=== PATIENT | male | born 1965 | race Caucasian/White ===

== ENCOUNTER 2017-01-26 23:58 | Emergency (ER) | payer BC, OTHER ==
[2017-01-27] MEDS ORDERED: Ketorolac INJ* 30 MG/ML 1 ML VIAL IV PUSH ONE (00:35)
[2017-01-27] MEDS ORDERED: Morphine INJ* 4 MG/ML 1 ML CARPUJECT IV ONE ×3 (00:35→04:00)
[2017-01-27] MEDS ORDERED: Ondansetron INJ* 2 MG/ML VIAL IV ONE ×3 (00:35→11:26)
[2017-01-27 01:07] LABS: Hematocrit 43 % (42-52); Hemoglobin 14.7 g/dl (14.0-18.0); Mean Corpuscular HGB Conc 34 g/dl (31-36); Mean Corpuscular Hemoglobin 27 pg (27-31); Mean Corpuscular Volume 81 fL (80-94); Mean Platelet Volume 8 um3 (7.4-10.4); Red Blood Count 5.37 10^6/ul (4.0-5.4); Red Cell Distribution Width 14 % (10.5-15); White Blood Count 14.8 10^3/ul (3.5-10.8)
[2017-01-27 01:20] LABS: Alcohol < 10 mg/dL (<10)
[2017-01-27] MEDS ORDERED: KETAMINE HCL* 50 MG/ML 10 ML VIAL IV ONE ×2 (01:21→01:25)
[2017-01-27 01:22] LABS: ALT 21 U/L (7-52); AST 19 U/L (13-39); Albumin 4.5 g/dL (3.2-5.2); Alkaline Phosphatase 78 U/L (34-104); Anion Gap 11 mmol/L (2-11); BUN/Creatinine Ratio 9.5 (8-20); Blood Urea Nitrogen 13 mg/dL (6-24); C Reactive Protein 7.35 mg/L (< 5.00); CO2 Carbon Dioxide 21 mmol/L (22-32); Calcium 9.4 mg/dL (8.6-10.3); Chloride 105 mmol/L (101-111); EGFR Non-African American 55.2 (>60); Globulin 3.1 g/dL (2-4); Glucose 121 mg/dL (70-100); Lipase 19 U/L (11.0-82.0); Potassium 3.6 mmol/L (3.5-5.0); Sodium 137 mmol/L (133-145); Total Protein 7.6 g/dL (6.4-8.9)
[2017-01-27] MEDS ORDERED: fentaNYL* 50 MCG/ML 2 ML VIAL (100 MCG VIAL) IV SLOW PU ONE ×2 (01:31→07:44)
[2017-01-27] MEDS ORDERED: Ondansetron INJ* 2 MG/ML VIAL ONE (02:00)
[2017-01-27] MEDS ORDERED: Metoclopramide IV* 5 MG/ML 2 ML VIAL IV SLOW PU ONE (02:09)
[2017-01-27] MEDS ORDERED: Iodixanol* (CONTRAST) 320 MG/ML 100 ML SDV IV ONE (02:10)
[2017-01-27] MEDS ORDERED: NS 0.9% 1000 ML* 2,000 ML IV ONE (04:00)
[2017-01-27] MEDS ORDERED: LORazepam INJ* 2 MG/ML 1 ML VIAL IV PUSH ONE (05:56)
[2017-01-27 06:32] LABS: Urine Bilirubin Negative (Negative); Urine Glucose Negative (Negative); Urine Nitrite Negative (Negative)
[2017-01-27 06:42] LABS: Benzodiazepine Urine Screen None Detected (None Detect)
[2017-01-27] MEDS ORDERED: Ciprofloxacin 400MG IVPREMIX(* 400 MG/200 ML BAG IVPB ONE (06:53)
--- NOTE | 2017-01-27 08:38 | RAD ---
Indication: Left lower quadrant pain Contrast: Administered 141.2 ml of VISAPAQUE 320 mg/ml CT of the abdomen and pelvis was performed after IV contrast administration. Coronal and sagittal reconstructed images were obtained. Lung bases demonstrate no pleural fluid or masses. There is a tiny 2 to 3 mm nodule in the right lung base unchanged from previous exam. No pleural fluid is identified. No alveolar consolidation is noted. Liver is normal in size. There is diffuse decrease in density of the liver consistent with hepatic steatosis. Gallbladder demonstrates no calcified gallstones, pericholecystic fluid or wall thickening. Common duct is not dilated. Pancreas demonstrates no mass or pancreatic duct dilatation. No adrenal masses are noted. There is slight delay of the left nephrogram. There is left hydronephrosis noted of mild to moderate degree. There is a calculus in the proximal left ureter measuring approximately 5 mm. No focal nodules are noted in the kidneys. The aorta and inferior vena cava are unremarkable with no evidence of retroperitoneal adenopathy. No dilated loops of bowel are noted. The colon is filled with stool. CT of the pelvis demonstrates repair of a ruptured abdominal wall hernia. No dilated loops of bowel are noted. The colon is filled with stool. There appears to be an anastomosis of the sigmoid colon. No pericolonic inflammation or fluid is noted. No pelvic adenopathy is noted. The urinary bladder is unremarkable. IMPRESSION: There is a 5 mm calculus in the left proximal ureter at approximately the L3 level with mild left hydronephrosis. Postoperative changes with anterior abdominal wall hernia repair and prior colon resection is noted. There is hepatic steatosis noted. 3 mm nodule in the right lower lobe appears stable since October 2016.
[2017-01-27] MEDS ORDERED: fentaNYL* 50 MCG/ML 2 ML VIAL (100 MCG VIAL) IV SLOW PU PRN (10:03)
--- NOTE | 2017-01-27 10:04 | CONSULT ---
Consult Consult: Mr. Cook came in on a previous shift and was found to have a 4 mm ureteral stone on the left that was very proximal. He was very symptomatic here and Dr. Wahl and Arsen were contacted for admission. He was admitted in stable condition with a diagnosis of ureterolithiasis and intractable pain.
[2017-01-27] MEDS ORDERED: Ondansetron INJ* 2 MG/ML VIAL IV PRN (10:29)
[2017-01-27] MEDS ORDERED: NS 0.9% 1000 ML* 1,000 ML IV SCH (10:30)
--- NOTE | 2017-01-27 12:32 | RAD ---
Indication: Kidney stone. Extrusion Press Operator film of the abdomen is reviewed. Comparison is made with previous exam dated earlier this morning. The left ureter is well opacified. There is filling defect in the distal left ureter likely representing the previously identified calculi measuring approximately 4 mm just above the left ureterovesicular junction. IMPRESSION: Previously identified calculi has likely migrated to the distal ureter just above the left ureterovesicular junction. Persistent obstruction of the left kidney is present.
[2017-01-27] MEDS ORDERED: A lbuterol Hfa (PREPAK) 1 MDI - ED TAKE HOME DISPENSING ONLY INHH PRN (12:50)
[2017-01-27] MEDS ORDERED: Mometasone NASAL (NF) SPRAY BOTH NARES PRN (12:50)
[2017-01-27] MEDS ORDERED: Polyethylene Glycol 3350* 17 GM PACKET PO PRN (12:50)
[2017-01-27 14:15] VITALS: BP 123/66
--- NOTE | 2017-01-27 15:54 | CONS ---
CONSULTATION REPORT: ADDENDUM: There is not urology coverage on as previously thought. The patient will receive another liter of saline in the emergency room and will be discharged to home. REED MACIEL, LEONORA [id number]/[facility] #: [id number] CARMEN
--- NOTE | 2017-01-27 16:10 | CONS ---
ADDENDUM NOW INCLUDED ON THIS REPORT CC: Dr. Lyla Stringer* CONSULTATION REPORT: DATE OF CONSULT: 01/27/17 - EMERGENCY DEPT PRIMARY CARE PROVIDER: Dr. Lyla Stringer. ATTENDING PHYSICIAN: Dr. Clair Aguilar (dictated by Reed Maciel NP). CHIEF COMPLAINT: Abdominal pain. HISTORY OF PRESENT ILLNESS: Mr. Cook is a 51-year-old male with past medical history significant for asthma, obstructive sleep apnea, diverticulitis, hypertension, and renal colic, who presented to the emergency room with complaints of abdominal pain that had suddenly started the night previously. Patient denies any fever, chills, chest pain, shortness of breath or urinary symptoms such as dysuria, urinary frequency. He does endorse nausea and vomiting. Patient states that his abdominal pain feels more like muscular. Due to the patient's abdominal pain, he presented to the emergency room for further evaluation of his symptoms. While in the emergency room, the patient had an abdomen and pelvis CT showing 5 mm calculus in the left proximal ureter at approximately the L3 level, with mild left hydronephrosis. Patient received pain medication and antinausea medicine while in the emergency room and Dr. Leger with Urology was consulted. The hospitalists were asked to evaluate the patient for admission. PAST MEDICAL HISTORY: 1. Asthma. 2. Obstructive sleep apnea, with CPAP use. 3. Diverticulitis. 4. Hypertension. PAST SURGICAL HISTORY: 1. Status post colectomy and colostomy placement. 2. Status post colostomy reversal complicated by wound infection. 3. Status post closed reduction and pinning of his left thumb, 2013. 4. Status post multiple cystos and stents. 5. Status post ventral hernia repair. 6. Status post exploratory lap and incidental appendectomy in 2000. HOME MEDICATIONS: Include: 1. Valsartan 80 mg oral daily. 2. Nasonex 2 sprays daily as needed. 3. Albuterol 180 mcg, 1 to 2 puffs inhalation every 6 hours as needed for shortness of breath or wheeze. 4. MiraLAX 17 g oral daily as needed for constipation. ALLERGIES: KETAMINE causes vomiting, DILAUDID and PERCOCET cause nausea and vomiting, DEMEROL causes violence, MOTRIN causes rash, and ADHESIVE TAPE. FAMILY HISTORY: Patient denies any family history of coronary artery disease or diabetes mellitus. Patient's mother has a history of breast cancer. SOCIAL HISTORY: The patient reports quitting smoking many years ago. Prior to that he has approximately 20-year smoking history. Patient occasionally drinks alcohol. He uses marijuana. He is retired. His , Natty Cook, will be his surrogate decision maker in the event he is unable to make decision for himself. REVIEW OF SYSTEMS: I performed a 14-point review of systems. All the pertinent positives and negatives as mentioned in the history of present illness. Remainder of the systems are negative. PHYSICAL EXAMINATION: General Appearance: The patient is alert, pleasant, appears to be in no acute distress. Vital Signs: Temperature 97.1, heart rate 84, respiratory rate 20, O2 sat 98% on room air, blood pressure 112/62. HEENT: Normocephalic, atraumatic. Pupils are equal and reactive to light. Extraocular movements are intact. Respiratory: There is no accessory muscle use. Lungs are clear to auscultation bilaterally. Cardiovascular: Regular rate and rhythm. S1 and S2 present. There are no murmurs, rubs, or gallops. Abdomen: Soft, nontender, nondistended. Bowel sounds present x4. Extremities: No lower extremity edema. DP and PT pulses 2+ and symmetric. Musculoskeletal: There is no clubbing or cyanosis noted. The patient exhibits good strength in all extremities. Neurological: The patient is alert and oriented. Cranial nerves II through XII are grossly intact. Psychological: The patient is calm and cooperative. Skin: There are no rashes or abnormalities seen. The patient has multiple scars to his abdomen from prior surgeries. DIAGNOSTIC STUDIES/LAB DATA: Sodium 137, potassium 3.6, chloride 105, CO2 of 21 , BUN 13, creatinine 1.37, glucose 121. White blood cell count 14.8, hemoglobin 14.7, hematocrit 43, and platelet count 225. Lactic acid 2.5. CRP 7.35. Drug tox is positive for opiates and cannabinoids. Abdomen and pelvis CT from 01/27/17. Radiologist's impression: There is a 5 mm calculus in the left proximal ureter at approximately the L3 level with mild left hydronephrosis. Postoperative changes with anterior abdominal wall hernia repair and prior colon resection is noted. There is hepatic stenosis noted. 3- mm nodule in the right lower lobe appears stable since October 2016. Abdomen x-ray on 01/27/17. Radiologist's impression: Previously identified calculi has likely migrated to the distal ureter just above the left ureterovesical junction. Persistent obstruction of the left kidney is present. EKG shows a sinus bradycardia with rate of 55. There are no acute signs of ischemia. No previous EKGs for comparison. IMPRESSION: Mr. Cook is a 51-year-old male with past medical history significant for asthma, obstructive sleep apnea with CPAP use, diverticulitis, hypertension, and renal calculi, who presents to the emergency room with complaints of abdominal pain, was found to have a 5-mm left proximal ureter stone. He will be admitted as an observation for nephrolithiasis and renal colic. ASSESSMENT/PLAN: 1. Nephrolithiasis/renal calculi. The patient will be given IV hydration. He will remain n.p.o. Dr. Leger with Urology is going to come in today and take the patient for a cysto and possible stent placement. Patient will be provided with supportive care, pain medication and nausea medication as needed. According to the RCRI, the patient has a 0 points, placing him at a class I risk , and a 0.4% risk of major cardiac event. Patient's EKG with no acute signs of ischemia. He has a MET score of greater than 4. The patient is medically optimized and may proceed to the OR according to Urology. 2. History of asthma. No signs of acute exacerbation at this time. The patient will be continued on albuterol p.r.n. 3. Hypertension. We will continue the patient on his home valsartan. 4. Obstructive sleep apnea. The patient will be continued on CPAP. 5. Fluids, electrolytes, and nutrition. N.p.o. at this time with normal saline at 125 mL an hour. 6. Code status: Full code. 7. DVT prophylaxis: The patient is at moderate risk and he will have SCDs. 8. Disposition: Observation. TIME SPENT: Time for this admission was approximately 60 minutes; greater than half of that was spent with the patient discussing medications, past medical history, the events leading up to his arrival today, and performing a physical examination. The case has been reviewed with the attending, Dr. Aguilar, who agrees with the plan of care. REED MACIEL NP ADDENDUM: There is not urology coverage on as previously thought. The patient will receive another liter of saline in the emergency room and will be discharged to home. REED MACIEL NP [id number]/[facility] #: [id number]/[facility] #: [id number] CARMEN
--- NOTE | 2017-01-28 04:30 | ED ---
Nohelia Cadet Rebecca, scribed for Seven Head MD on 01/27/17 at 0046 . Abdominal Pain/Male - HPI Summary HPI Summary: Pt is a 51 y/o M who presents to ED c/o abdominal pain. Pain began approximately 1 hour RN INTAKE and is currently severe, ranked 10/10. Pain is in the LLQ, L testicle and L flank with all pain beginning concurrently. Sx aggravated and alleviated by nothing. Additionally c/o difficulty urinating, N/V/D, stating he is "shitting spaghetti." Unsure of when he last urinated. Allergies to Ibuprofen, hydromorphone and meperidine. PMHx renal calculi, diverticulitis and HTN. PSHx colon repair form "colon burst" secondary to diverticulitis and hernia repair. - History of Current Complaint Chief Complaint: EDAbdPain Stated Complaint: ABD PAIN Time Seen by Provider: 01/27/17 00:35 Hx Obtained From: Patient Onset/Duration: Still Present Severity Currently: Severe Pain Intensity: 10 Pain Scale Used: 0-10 Numeric Location: Discrete At: LLQ, Groin - Left testicle, Flank - Left Aggravating Factor(s): Nothing Alleviating Factor(s): Nothing Associated Signs And Symptoms: Positive: Nausea, Vomiting, Diarrhea, Other - Difficulty urinating - Allergies/Home Medications Allergies/Adverse Reactions: Allergies Allergy/AdvReac Type Severity Reaction Status Date / Time Ketamine Allergy Nausea And Verified 01/27/17 06:59 Vomiting Hydromorphone [From Dilaudid] AdvReac Severe Altered Verified 01/27/17 00:14 Mental Status Meperidine [From Demerol HCl] AdvReac Severe Altered Verified 01/27/17 00:14 Mental Status Ibuprofen AdvReac Intermediate Rash Verified 01/27/17 00:14 adhesives AdvReac Intermediate Rash Uncoded 01/27/17 00:14 PMH/Surg Hx/FS Hx/Imm Hx Cardiovascular History: Reports: Hx Hypertension - has not been taking BP MEDS THAT WERE PRESCRIBED Respiratory History: Reports: Hx Asthma - FLARES UP WITH SEASON CHANGES, Hx Pneumonia, Hx Seasonal Allergies, Hx Sleep Apnea GI History: Reports: Hx Diverticulosis, Hx Ileostomy Denies: Other GI Disorders History: Reports: Hx Kidney Stones - IN THE PAST Musculoskeletal History: Reports: Hx Arthritis - left hand, Hx Orthopedic Injury - left thumb Denies: Other Musculoskeletal History Sensory History: Denies: Hx Contacts or Glasses, Hx Hearing Aid Opthamlomology History: Denies: Hx Contacts or Glasses Psychiatric History: Reports: Hx Anxiety - TENDS TO BE HYPER & ANXIOUS - Surgical History Surgery Procedure, Year, and Place: Left eye (Raul's Transplant);. Appendectomy. Colostomy. Colostomy Reversal. Hernia Surgery. Left ORIF Knee. Left eye-Cornea surgery-Lens implant[place] [place]. Kidney [id number] Hx Anesthesia Reactions: No Infectious Disease History: Denies: Traveled Outside the [place] in Last 30 Days - Family History Known Family History: Negative: Diabetes - Social History Alcohol Use: Weekly Alcohol Amount: 5 DRINKS A MONTH Substance Use Type: Reports: Marijuana Substance Use Comment - Amount & Last Used: MJ EVERY DAY Smoking Status (MU): Former Smoker Amount Used/How Often: 1 PK EVERY 2 DAYS X 20 YRS Review of Systems Negative: Fever, Chills Negative: Erythema Negative: Sore Throat Negative: Chest Pain Negative: Shortness Of Breath, Cough Positive: Abdominal Pain - LLQ, L flank and l testicle, Vomiting, Diarrhea, Nausea Positive: other - Difficulty urinating. Negative: dysuria, hematuria Negative: Myalgia, Edema Negative: Rash Neurological: Other - NEGATIVE: dizziness All Other Systems Reviewed And Are Negative: Yes Physical Exam - Summary Physical Exam Summary: Constitutional: Well-developed, Well-nourished, Alert. (-) Distressed Skin: Warm, Dry HENT: Normocephalic; Atraumatic Eyes: Conjunctiva normal Neck: Musculoskeletal ROM normal neck. (-) JVD, (-) Stridor, (-) Tracheal deviation Cardio: Rhythm regular, rate normal, Heart sounds normal; Intact distal pulses; The pedal pulses are 2+ and symmetric. Radial pulses are 2+ and symmetric. (-) Murmur Pulmonary/Chest wall: Effort normal. (-) Respiratory distress, (-) Wheezes, (-) Rales Abd: Soft, Tender in the LLQ with a large infra-umbilical incisional scar. He is rocking on the bed, preventing a complete examination. (-) Distension, (-) Guarding, (-) Rebound Musculoskeletal: (-) Edema Lymph: (-) Cervical adenopathy Neuro: Alert, Oriented x3 Psych: Mood and affect Normal Triage Information Reviewed: Yes Vital Signs On Initial Exam: Initial Vitals Temp Pulse Resp BP Pulse Ox 97.1 F 82 20 158/91 98 01/27/17 00:05 01/27/17 00:05 01/27/17 00:05 01/27/17 00:05 01/27/17 00:05 Vital Signs Reviewed: Yes Diagnostics - Vital Signs Vital Signs Temp Pulse Resp BP Pulse Ox 01/27/17 00:05 97.1 F 82 20 158/91 98 - Laboratory Lab Results: Lab Results 01/27/17 01/27/17 01/27/17 Range/Units 00:40 00:40 00:40 WBC 14.8 H (3.5-10.8) 10^3/ul RBC 5.37 (4.0-5.4) 10^6/ul Hgb 14.7 (14.0-18.0) g/dl Hct 43 (42-52) % MCV 81 (80-94) fL MCH 27 (27-31) pg MCHC 34 (31-36) g/dl RDW 14 (10.5-15) % Plt Count 225 (150-450) 10^3/ul MPV 8 (7.4-10.4) um3 Neut % (Auto) 77.5 (38-83) % Lymph % (Auto) 16.6 L (25-47) % Bland % (Auto) 4.1 (1-9) % Eos % (Auto) 1.5 (0-6) % Baso % (Auto) 0.3 (0-2) % Absolute Neuts (auto) 11.5 H (1.5-7.7) 10^3/ul Absolute Lymphs (auto) 2.5 (1.0-4.8) 10^3/ul Absolute Monos (auto) 0.6 (0-0.8) 10^3/ul Absolute Eos (auto) 0.2 (0-0.6) 10^3/ul Absolute Basos (auto) 0 (0-0.2) 10^3/ul Absolute Nucleated RBC 0 10^3/ul Nucleated RBC % 0 Sodium 137 (133-145) mmol/L Potassium 3.6 (3.5-5.0) mmol/L Chloride 105 (101-111) mmol/L Carbon Dioxide 21 L (22-32) mmol/L Anion Gap 11 (2-11) mmol/L BUN 13 (6-24) mg/dL Creatinine 1.37 H (0.67-1.17) mg/dL Est GFR ( Amer) 71.0 (>60) Est GFR (Non-Af Amer) 55.2 (>60) BUN/Creatinine Ratio 9.5 (8-20) Glucose 121 H (70-100) mg/dL Lactic Acid 2.5 H* (0.5-2.0) mmol/L Calcium 9.4 (8.6-10.3) mg/dL Total Bilirubin 0.50 (0.2-1.0) mg/dL AST 19 (13-39) U/L ALT 21 (7-52) U/L Alkaline Phosphatase 78 (34-104) U/L C-Reactive Protein 7.35 H (< 5.00) mg/L Total Protein 7.6 (6.4-8.9) g/dL Albumin 4.5 (3.2-5.2) g/dL Globulin 3.1 (2-4) g/dL Albumin/Globulin Ratio 1.5 (1-3) Lipase 19 (11.0-82.0) U/L Urine Color Urine Appearance Urine pH (5-9) Ur Specific [place] (1.010-1.030) Urine Protein (Negative) Urine Ketones (Negative) Urine Blood (Negative) Urine Nitrate (Negative) Urine Bilirubin (Negative) Urine Urobilinogen (Negative) Ur Leukocyte Esterase (Negative) Urine Glucose (Negative) Urine Opiates Screen (None Detect) Ur Barbiturates Screen (None Detect) Ur Phencyclidine Scrn (None Detect) Ur Amphetamines Screen (None Detect) U Benzodiazepines Scrn (None Detect) Urine Cocaine Screen (None Detect) U Cannabinoids Screen (None Detect) Serum Alcohol < 10 (<10) mg/dL 01/27/17 01/27/17 Range/Units 06:25 06:25 WBC (3.5-10.8) 10^3/ul RBC (4.0-5.4) 10^6/ul Hgb (14.0-18.0) g/dl Hct (42-52) % MCV (80-94) fL MCH (27-31) pg MCHC (31-36) g/dl RDW (10.5-15) % Plt Count (150-450) 10^3/ul MPV (7.4-10.4) um3 Neut % (Auto) (38-83) % Lymph % (Auto) (25-47) % Bland % (Auto) (1-9) % Eos % (Auto) (0-6) % Baso % (Auto) (0-2) % Absolute Neuts (auto) (1.5-7.7) 10^3/ul Absolute Lymphs (auto) (1.0-4.8) 10^3/ul Absolute Monos (auto) (0-0.8) 10^3/ul Absolute Eos (auto) (0-0.6) 10^3/ul Absolute Basos (auto) (0-0.2) 10^3/ul Absolute Nucleated RBC 10^3/ul Nucleated RBC % Sodium (133-145) mmol/L Potassium (3.5-5.0) mmol/L Chloride (101-111) mmol/L Carbon Dioxide (22-32) mmol/L Anion Gap (2-11) mmol/L BUN (6-24) mg/dL Creatinine (0.67-1.17) mg/dL Est GFR ( Amer) (>60) Est GFR (Non-Af Amer) (>60) BUN/Creatinine Ratio (8-20) Glucose (70-100) mg/dL Lactic Acid (0.5-2.0) mmol/L Calcium (8.6-10.3) mg/dL Total Bilirubin (0.2-1.0) mg/dL AST (13-39) U/L ALT (7-52) U/L Alkaline Phosphatase (34-104) U/L C-Reactive Protein (< 5.00) mg/L Total Protein (6.4-8.9) g/dL Albumin (3.2-5.2) g/dL Globulin (2-4) g/dL Albumin/Globulin Ratio (1-3) Lipase (11.0-82.0) U/L Urine Color Yellow Urine Appearance Clear Urine pH 6.0 (5-9) Ur Specific [place] 1.057 H (1.010-1.030) Urine Protein Negative (Negative) Urine Ketones 1+ H (Negative) Urine Blood Negative (Negative) Urine Nitrate Negative (Negative) Urine Bilirubin Negative (Negative) Urine Urobilinogen Negative (Negative) Ur Leukocyte Esterase Negative (Negative) Urine Glucose Negative (Negative) Urine Opiates Screen Presumptive positive H (None Detect) Ur Barbiturates Screen None detected (None Detect) Ur Phencyclidine Scrn None detected (None Detect) Ur Amphetamines Screen None detected (None Detect) U Benzodiazepines Scrn None detected (None Detect) Urine Cocaine Screen None detected (None Detect) U Cannabinoids Screen Presumptive positive H (None Detect) Serum Alcohol (<10) mg/dL Result Diagrams: 01/27/17 00:40 01/27/17 00:40 Lab Statement: Any lab studies that have been ordered have been reviewed, and results considered in the medical decision making process. - CT CT Abd/Pel CT Interpretation: Positive (See Comments) - Mild left hydronephrosis and perinephric inflammation secondary to a 4 mm proximal left ureteral stone, likely beyond the UPJ. ED physician reviewed radiology report and agrees. CT Interpretation Completed By: Radiologist Re-Evaluation - Re-Evaluation First Eval Re-Evaluation Time: 01:28 Change: Unchanged Comment: Pt continues to swear at me. He specifically requested Fentanyl for pain relief and agreed to receive some Ketamine for pain management. Second Eval Re-Evaluation Time: 01:56 Change: Improved Comment: Reevaluated the patient. Personally administered 75 mg of IV Ketamine for pain relief. he had excellent therapeutic effect with no respiratory depression. He is on continuous oximetry and telemetry. Abdominal Pain Fem Course/Dx - Course Assessment/Plan: Pt is a 51 y/o M who presents to ED c/o abdominal pain for approximately 1 hour RN INTAKE that is currently severe, ranked 10/10. Pain is in the LLQ, L testicle and L flank with all pain beginning concurrently. Additionally c /o difficulty urinating, N/V/D, stating he is "shitting spaghetti." Unsure of when he last urinated. Allergies to Ibuprofen, hydromorphone and meperidine. PMHx renal calculi, diverticulitis and HTN. PSHx colon repair from "colon burst " secondary to diverticulitis and hernia repair. CT Abd/Pel reveals mild left hydronephrosis and perinephric inflammation secondary to a 4 mm proximal left ureteral stone, likely beyond the UPJ. WBX of 14.8. In the ED course, pt received Toradol, morphine, zofran, Ativan, reglan, ketamine, Cipro and fluids. Discussed care of pt with Dr. Wahl who requested a urology consult. Elevated BP noted and advised to f/u with PCP. - Diagnoses Provider Diagnoses: Refractory nausea and vomiting, obstructing ureteral calculi - Provider Notifications Discussed Care Of Patient With: Clair Wahl Time Discussed With Above Provider: 07:17 Instructed by Provider To: Other - Would like a urology consult. Discharge - Discharge Plan Condition: Stable Disposition: HOME Prescriptions: HYDROcodone/ACETAMIN 5-325 MG* [[place] 5-325 TAB*] 1 tab PO Q6H PRN #20 tab MDD 4 PRN Reason: Pain Ondansetron ODT TAB* [Zofran Odt TAB*] 4 mg PO Q6H PRN #20 tab.odt PRN Reason: Nausea/Vomiting Tamsulosin CAP* [Flomax CAP*] 0.4 mg PO DAILY #7 cap Patient Education Materials: Kidney Stones (ED) Referrals: Lyla Thomas MD [Primary Care Provider] - Raphael Leger MD [Medical Doctor] - 1 Week (PLEASE F/U WITHIN THE WEEK) The documentation as recorded by the Nohelia han Rebecca accurately reflects the service I personally performed and the decisions made by Adilene luke Jerry, MD.
[2017-01-28] MEDS ORDERED: Valsartan TAB* 40 MG PO SCH (09:00)
== END 2017-01-27 16:50 | disposition home or self-care (01) ==
LOC: ED 23:58
DX: N13.2 Hydronephrosis with renal and ureteral calculous obstruction (principal); R11.2 Nausea with vomiting, unspecified; I10 Essential (primary) hypertension; K57.92 Diverticulitis of intestine, part unspecified, without perforation or abscess without bleeding; G47.33 Obstructive sleep apnea (adult) (pediatric); Z87.891 Personal history of nicotine dependence; Z87.442 Personal history of urinary calculi
CPT/HCPCS: 36415; 74000; 74177; 80053; 80307; 80320; 81003; 83605; 83690; 85025; 86140; 93005; 96360; 96361; 96365; 96374; 96375; 96376; 99285; G0480; J0744; J1885; J2060; J2270; J2405; J2765; J3010; Q9967

== ENCOUNTER 2018-07-27 11:12 | Emergency (ER) | payer BC ==
--- OUTSIDE RECORDS SUMMARY | 2018-07-27 11:23 | XMS REPORT | Continuity of Care Document ---
:1965 External Reference #:[id number] Author Name Lyla Stringer M.D., R.D. Address [address] [place] [address] Care Team Providers Name Role Phone Lyla Stringer M.D., R.DSue Care Team Information Control Analyst Unavailable Payers Date Identification Numbers Payment Provider Subscriber Effective: 2011 [id number] [facility] Expires: 2011 Group Name: BC/BS of [facility] [address] PayID: [id number] [place] [id number] Effective: 2012 Policy Number: Family [facility] Harry Canela [id number] Expires: 2014 PayID: [id number] [address] [address] [place] [address] Effective: 2016 Policy Number: [id number] [facility] Harry Canela Medicaid Expires: 2017 PayID: [id number] [address] [place] [address] Effective: 2014 Policy Number: [id number] [employer] Harry Canela Expires: 2016 PayID: [id number] [address] [place] [address] Effective: 2017 Policy Number: [id number] [employer] Harry Canela PayID: [id number] [address] [place] [address] Onset: 2011 Policy Number: [id number] [employer] Harry Canela [place]: [id number] [place] [address] Onset: 2013 Policy Number: [id number] [employer] Harry Canela PayID: GUARD 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 Unknown 17-33. 1 pack q4 days. ETOH Use Occasionally consumes alcohol Recreational Drug Use Regularly uses Marijuana Tobacco Use Start: Unknown End: Patient is a former Unknown smoker Smoking Status Reviewed: 07/08/18 Patient is a former smoker Exercise Type/Frequency Does not exercise Allergies, Adverse Reactions, Alerts Date Description Reaction Status Severity Comments 09/22/2008 Dilaudid psychosis Active gets violentLY Sick 09/22/2008 Demerol psychosis Active 09/22/2008 Ibuprofen rash Active 09/22/2008 Adhesives rash Active 11/18/2014 Lisinopril Active cough 01/29/2017 Ketamine Active emesis, "" Medications Medication Date Status Form Strength Qnty SIG Indications Ordering Provider Vitamin D3 Ultra 07/09 Active Tablets [id number] 24tab 1 by Lyla ricky Stringer, brittani a Claudia, R.D. week Symbicort 05/31 Active Aerosol 80-4.5mcg 6.900 inhale 2 /Act gm puffs by LEONORA Hall mouth 2 times per day for asthma Econazole Nitrate 05/30 Active Cream 1% 30gm apply to affected LEONORA Hall areas twice daily x 2 weeks Cimetidine 05/18 Active Tablets 300mg 60tab take 1 K21.9 Phan s tablet by Laminetjesus mouth two MD times daily for heartburn Cozaar 12/10 Active Tablets 50mg 30tab 1 po qd ricky Stringer M.D., R.D. Contrave 06/09 Active Tablets ER 8-90mg 120ta 1 by 12HR bs mouth Siomara, every day M.Les, R.D. for one week, then 1 twice a day for one week, then 2 in the morning and 1 at night for one week, then 2 bid Cpap 06/09 Active New cpap machine Siomara, plus Claudia, R.D. heated humidifie r dx g47.33 Spacer 03/02 Active use as directed Earnestine Quintanilla, with M.D. inhaler Ventolin HFA 06/18 Active Aerosol 108(90Bas 8gm 1-2 puffs e) four Sky, mcg/Act times a M.D. day as needed Anucort-HC 02/14 Active Suppository 25mg 20uni use one K64.8 ts supposito Rafael, LEONORA ry by way of rectum twice a day as needed hemorrhoi d flare Losartan Active Tablets 100mg Unknown Potassium /0000 Irbesartan 12/03 Hx Tablets 150mg 30tab 1 by s mouth Shortle, - every day MAINTENANCE AND UTILITIES SUPERVISOR 12/10 Cyclobenzaprine 08/11 Hx Tablets 5mg 45tab 1-2 by M54.5 Kristie HCL s mouth Mere, - three MUSIC THEORY PROFESSOR-C 07/23 times day for muscle spasm, may cause drowsines s Dulera 08/11 Hx Aerosol 200-5mcg/ 8.800 2 Act gm inhalatio Rafael, MAINTENANCE AND UTILITIES SUPERVISOR - n twice 05/31 daily Valsartan 05/05 Hx Tablets 80mg 30tab 1 by s mouth Siomara, - every day MAshkan, R.D. 12/03 Flovent HFA 03/07 Hx Aerosol 110mcg/Ac 12gm Steroid t Inhaler- Earnestine Quintanilla, - inhale 2 M.D. 07/23 puffs mouth two times a day with spacer and rinse mouth after use (Since Qvar Not Covered) Amoxicillin/Clavu 03/02 Hx Tablets 875-125mg 20tab 1 by J01.90 Jenny lanate Potassium s mouth P. Blegen, - twice a M.D. 01/29 day for /2017 10 days For Sinus Infection Flovent HFA 06/18 Hx Aerosol 110mcg/Ac 2unit 1 Inhale Phan t s by mouth Tanya, - puff 2 11/08 times day for asthma Qvar 06/18 Hx Aerosol 40mcg/Act 8.700 2 puff Jenny gm twice a P. Blegen, - day, M.D. 03/08 rinse mouth after Pulmicort 06/14 Hx Aerosol 180mcg/Ac 2unit 1 puffs Phan Flexhaler t s twice a Tanya, - day 11/08 Sudafed 06/14 Hx Tablets 30mg 30tab 1 tab by Phan s mouth Tanya, - three MD 01/29 times day facial pressure Miralax 05/06 Hx Packet [id number] 90uni 1 packet K59.00 ts by mouth Tanya, - twice a Omeprazole 05/[address] 20mg 30cap 1 by Phan s mouth Tanya, - every day 06/14 Meloxicam 03/15 Hx Tablets 7.5mg 30tab take one M70.10 s by mouth Siomara, - up to two M.D., R.D. 05/06 times day as needed for pain Valsartan 02/24 Hx Tablets 40mg 60tab 2 tab by Melecio s mouth Zaire - daily III, MUSIC THEORY PROFESSOR-C 05/05 Nystatin 12/09 Hx Cream 354719Ocf 30gm apply to t/GM face rash Mere, - twice a MUSIC THEORY PROFESSOR-C Diovan 11/18 Hx Tablets 80mg 30tab 1 by I10 Lyla s mouth Siomara, - every day M.D., R.D. 06/14 Metformin HCL 11/18 Hx Tablets 500mg 20tab 1 by 278.00 s mouth Mere, - once a MUSIC THEORY PROFESSOR-C 03/09 day vacation and ran out of meds Hydrocodone-Aceta 10/04 Hx Tablets 5-325mg 45tab 1-2 po 959.5 Lyla min s qid prn Kendal Stringer M.D., R.D. 06/14 Azithromycin 08/13 Hx Tablets 250mg 6tabs take 2 466.0 tablets Mere, - today MUSIC THEORY PROFESSOR-C 02/10 then tablet daily for the next 4 days Ventolin HFA 08/13 Hx Aerosol 108(90Bas 1unit 1 puff Melecio e) s q4hr as Sharon - mcg/Act needed III, MUSIC THEORY PROFESSOR-C 11/08 cough, wheeze, shortness of breath Benzonatate 08/13 Hx Capsules 100mg 30cap 1 or 2 466.0 s tabs po Mere - tid prn MUSIC THEORY PROFESSOR-C 06/14 coughing Viagra 09/30 Hx Tablets 50mg 6tabs 1/2-1 tab 302.72 before Kendal Stringer M.D., R.D. 03/02 Lisinopril 09/30 Hx Tablets 10mg 30tab 1 by 796.2 s mouth Mere, Kendal every day MUSIC THEORY PROFESSOR-C 10/01 Methylprednisolon 08/23 Hx Tablets 4mg 1tabs use as 462 Claire e Dose directed Kendal Gannon M.D. 08/13 Tamiflu 04/27 Hx Capsules 75mg 10cap one po qd s for 10 K.W. - days Anibal, 06/14 Claudia Methocarbamol 03/13 Hx Tablets 500mg 30tab 1 po qid 723.1 Kristie s as needed Mree, Kendal for MUSIC THEORY PROFESSOR-C 06/14 spasm Tramadol HCL 03/13 Hx Tablets 50mg 30thi 1-2 723.1 rty tablets Mere, - po q 4-6 MUSIC THEORY PROFESSOR-C 06/14 hours prn pain Ergocalciferol 12/17 Hx Tablets 50,000Uni 8tabs take 1 Kristie Tablets ts tablet Mere, - twice a MUSIC THEORY PROFESSOR-C 06/14 week for 4 weeks Avelox 05/24 Hx Tablets 400mg 10tab Take 1 238.2 Kristie s tablet po Mere, - daily X MUSIC THEORY PROFESSOR-C 02/14 10 Prednisone 05/24 Hx Tablets 20mg 10tab 2 tabs po 238.2 Kristie s qday x 5 Mere, - days MUSIC THEORY PROFESSOR-C 02/14 Nasonex 05/24 Hx Suspension 50mcg/Act 17gm 2 sprays 238.2 Kristie in each Mere, - nostril MUSIC THEORY PROFESSOR-C 03/02 qd Ventolin HFA 03/13 Hx Aerosol 108(90Bas 1unit 1 puff 238.2 Shawnti R. /2010 e) mcg/ac s q4hr prn , - cough, MUSIC THEORY PROFESSOR-C 08/13 wheeze, shortness of breath Flovent HFA 03/13 Hx Aerosol 110mcg/Ac 1Mont 2 puff Shawnti R. /2010 t h bid , - MUSIC THEORY PROFESSOR-C 06/14 Albuterol Sulfate 03/13 Hx Nebulizer (2.5mg/3M 1box use one 238.2 Shawnti R. /2010 L) 0.083% vial in , - nebulizer MUSIC THEORY PROFESSOR-C 03/02 qid prn wheeze/sh ortness of breath Zofran Odt 05/23 Hx Tablets 4mg 20tab 1 every 8 535.50 Laura Dispers s hours for Don, - nausea MAINTENANCE AND UTILITIES SUPERVISOR 03/13 Asmanex 30 04/30 Hx Aerosol 220mcg/In 1unit 1 puff qd Jenny Metered Doses /2009 h s for 2-4 P. Blegen, - weeks- M.D. 03/13 rinse mouth after use Zithromax Z-José 04/30 Hx Tablets 250mg 6tabs two po qd Jenny /2009 today and P. Blegen, - then one M.D. 03/13 po qd for 4 days Avelox 03/09 Hx Tablets 400mg 10tab one tab 482.9 Laura s daily for Ochoa, - 10 days MAINTENANCE AND UTILITIES SUPERVISOR 03/13 Prednisone 03/09 Hx Tablets 20mg 10tab 2 tabs po 482.9 s qday x 5 Ochoa, - days MAINTENANCE AND UTILITIES SUPERVISOR 03/13 Aceta-Gesic 03/09 Hx Tablets 30-325mg Don, - MAINTENANCE AND UTILITIES SUPERVISOR 03/09 Tylenol/Codeine 03/09 Hx Tablets 300-30mg 30tab 1-2 tabs Laura # s every 6 Ochoa, - hours as MAINTENANCE AND UTILITIES SUPERVISOR 02/14 needed for pain and cough No School 2 Days 03/09 Hx 482.9 Don, - MAINTENANCE AND UTILITIES SUPERVISOR 02/14 Fluticasone 12/20 Hx Suspension 50mcg/Act 1mont 2 sprays 477.9 Shawnti R. Propionate h each nare Storm, - daily for MUSIC THEORY PROFESSOR-C 03/02 rhinitis Ergocalciferol 01/05 Hx Tablets 50,000Uni 8tabs 1 po Shawnti R. Tablets ts weekly Storm, - for MUSIC THEORY PROFESSOR-C 02/14 vitamin d deficienc y, repeat level in 8 weeks Nasonex 10/27 Hx Suspension 50mcg/Act 1mont 2 sprays 477.9 Shawnti R. /2008 h each Storm, - nostril MUSIC THEORY PROFESSOR-C 12/20 daily for rhinitis Hydroxyzine HCL 10/27 Hx Tablets 10mg 30tab 1 po q6hr 300.00 Shawnti R. /2008 s prn Storm, - anxiety MUSIC THEORY PROFESSOR-C 08/13 Proventil HFA 09/22 Hx Aerosol 108mcg/Ac 2unit 2 puffs 238.2 t s q4h prn Don, - cough, MAINTENANCE AND UTILITIES SUPERVISOR 03/13 wheeze, shortness of breath Zithromax Z-José 09/22 Hx Tablets 250mg 6tabs 2 po on 238.2 Shawnti R. /2008 day 1, 1 Storm, - po on MUSIC THEORY PROFESSOR-C 10/27 days 2- Robitussin ac 09/22 Hx 150ml 1-2 tsp 238.2 Shawnti R. /2008 po q4-6hr Storm, - prn MUSIC THEORY PROFESSOR-C 10/27 cough/alison /2009 n Medications Administered in Office Medication Date Status Form Strength Qnty SIG Indications Ordering Provider Vitamin B-12 Administered Injection Lab and Injection-To 019 Office 1000mcg Services TB,Intradermal Administered Injection Lab and (PPD, Mantoux) 016 Office Services Immunizations CPT Code Status Date Vaccine Lot # [id number] Given 04/27/2012 Influenza Vaccine-Preservative Free 3 Yrs And [id number] Above 07423 Given 02/05/2009 MMR (Measles,Mumps,Rubella) [id number] Refused 07/08/2018 Influenza Virus Vaccine, Quadrivalent, 3 Yr > Quad , Preserv Free [id number] Refused 07/23/2017 Influenza Virus Vaccine, Quadrivalent, 3 Yr > Quad , Preserv Free Vital Signs Date Vital Result Comment 07/08/2018 10:30am Weight 269.00 lb Weight 122.018 kg BP Systolic 120 mmHg BP Diastolic 80 mmHg Heart Rate 74 /min Body Temperature 97.5 F Respiratory Rate 16 /min Height 68.5 inches 5'8.50" BMI (Body Mass Index) 40.3 kg/m2 06/05/2018 10:45am Weight 264.00 lb Weight 119.750 kg BP Systolic 140 mmHg BP Diastolic 80 mmHg Heart Rate 75 /min Body Temperature 98.1 F Respiratory Rate 16 /min O2 % BldC Oximetry 95 % 05/30/2018 10:25am Weight 266.00 lb Weight 120.658 kg BP Systolic 150 mmHg BP Diastolic 100 mmHg Heart Rate 68 /min Body Temperature 98.1 F O2 % BldC Oximetry 98 % 05/18/2018 9:26am Weight 266.00 lb Weight 120.658 kg BP Systolic 150 mmHg BP Diastolic 88 mmHg Body Temperature 98.8 F 12/03/2017 9:18am Weight 269.00 lb Weight 122.018 kg BP Systolic 140 mmHg BP Diastolic 82 mmHg Heart Rate 74 /min Body Temperature 97.4 F Respiratory Rate 16 /min O2 % BldC Oximetry 97 % 08/29/2017 10:55am Weight 271.00 lb Weight 122.926 kg Heart Rate 72 /min Body Temperature 98.0 F Respiratory Rate 18 /min Height 68.5 inches 5'8.50" BMI (Body Mass Index) 40.6 kg/m2 O2 % BldC Oximetry 97 % 07/31/2017 2:23pm Weight 258.00 lb Weight 117.029 kg BP Systolic 128 mmHg BP Diastolic 84 mmHg Heart Rate 82 /min Body Temperature 98.7 F Respiratory Rate 20 /min O2 % BldC Oximetry 98 % 07/23/2017 2:18pm BP Systolic 119 mmHg BP Diastolic 80 mmHg Heart Rate 64 /min Body Temperature 99.2 F O2 % BldC Oximetry 96 % 98 07/19/2017 10:17am Weight 259.00 lb Weight 117.482 kg BP Systolic 140 mmHg BP Diastolic 78 mmHg Heart Rate 74 /min Body Temperature 98.2 F Respiratory Rate 16 /min O2 % BldC Oximetry 98 % 01/29/2017 11:27am Weight 267.00 lb Weight 121.111 kg BP Systolic 146 mmHg BP Diastolic 82 mmHg Heart Rate 72 /min Body Temperature 98.6 F Respiratory Rate 24 /min O2 % BldC Oximetry 99 % 08/11/2016 12:32pm Weight 270.00 lb Weight 122.472 kg BP Systolic 140 mmHg BP Diastolic 80 mmHg Heart Rate 80 /min Body Temperature 98.5 F Respiratory Rate 12 /min 06/09/2016 10:41am Weight 265.00 lb Weight 120.204 kg BP Systolic 132 mmHg BP Diastolic 78 mmHg Heart Rate 72 /min Height 68 inches 5'8" BMI (Body Mass Index) 40.3 kg/m2 O2 % BldC Oximetry 97 % 03/17/2016 11:03am Weight 258.00 lb Weight 117.029 kg BP Systolic 120 mmHg BP Diastolic 82 mmHg Heart Rate 60 /min Body Temperature 98.0 F Respiratory Rate 12 /min 03/08/2016 8:35am Weight 256.00 lb Weight 116.122 kg BP Systolic 138 mmHg BP Diastolic 80 mmHg Heart Rate 68 /min Body Temperature 97.9 F O2 % BldC Oximetry 98 % 03/02/2016 11:40am Weight 255.00 lb Weight 115.668 kg BP Systolic 130 mmHg BP Diastolic 69 mmHg Heart Rate 72 /min Body Temperature 99.3 F Height 67.75 inches 5'7.75" BMI (Body Mass Index) 39.1 kg/m2 O2 % BldC Oximetry 99 % 11/30/2015 11:01am Weight 260.00 lb Weight 117.936 kg BP Systolic 124 mmHg BP Diastolic 86 mmHg Heart Rate 85 /min Body Temperature 98.4 F 11/09/2015 2:24pm Weight 263.00 lb Weight 119.297 kg BP Systolic 140 mmHg BP Diastolic 80 mmHg Heart Rate 92 /min Body Temperature 98.2 F O2 % BldC Oximetry 98 % 06/14/2015 9:51am Weight 252.00 lb Weight 114.307 kg BP Systolic 130 mmHg BP Diastolic 78 mmHg Heart Rate 77 /min Body Temperature 98.8 F O2 % BldC Oximetry 98 % 05/06/2015 10:44am Weight 256.00 lb Weight 116.122 kg BP Systolic 136 mmHg BP Diastolic 84 mmHg Heart Rate 76 /min Body Temperature 98.4 F 03/15/2015 3:50pm Weight 260.00 lb Weight 117.936 kg BP Systolic 140 mmHg BP Diastolic 78 mmHg Heart Rate 60 /min 03/09/2015 3:03pm Weight 260.00 lb Weight 117.936 kg BP Systolic 110 mmHg repeat 138/80 BP Diastolic 70 mmHg repeat 138/80 Heart Rate 76 /min 11/26/2014 10:34am Weight 257.00 lb Weight 116.575 kg BP Systolic 128 mmHg BP Diastolic 78 mmHg Heart Rate 72 /min 11/18/2014 12:17pm Weight 262.00 lb Weight 118.843 kg BP Systolic 150 mmHg BP Diastolic 94 mmHg Heart Rate 68 /min 10/01/2014 11:29am Weight 262.00 lb Weight 118.843 kg BP Systolic 120 mmHg BP Diastolic 80 mmHg Heart Rate 56 /min 02/10/2014 8:56am Weight 250.00 lb Weight 113.400 kg BP Systolic 130 mmHg BP Diastolic 76 mmHg Heart Rate 55 /min Body Temperature 97.7 F O2 % BldC Oximetry 98 % 02/04/2014 8:59am Weight 249.00 lb Weight 112.946 kg BP Systolic 140 mmHg BP Diastolic 82 mmHg Heart Rate 62 /min Body Temperature 97.8 F O2 % BldC Oximetry 98 % 10/04/2013 11:04am Weight 251.00 lb Weight 113.854 kg BP Systolic 138 mmHg BP Diastolic 72 mmHg Heart Rate 72 /min 08/13/2013 9:19am Weight 250.00 lb Weight 113.400 kg BP Systolic 138 mmHg BP Diastolic 78 mmHg Heart Rate 72 /min Body Temperature 97.9 F 09/30/2012 11:51am Weight 256.00 lb Weight 116.122 kg BP Systolic 122 mmHg BP Diastolic 82 mmHg Heart Rate 68 /min 09/05/2012 11:07am Weight 255.00 lb Weight 115.668 kg BP Systolic 110 mmHg BP Diastolic 68 mmHg Heart Rate 76 /min 08/23/2012 11:22am Weight 253.00 lb Weight 114.761 kg BP Systolic 140 mmHg BP Diastolic 104 mmHg Heart Rate 92 /min Body Temperature 98.3 F O2 % BldC Oximetry 98 % level at rest 03/13/2012 3:47pm Weight 251.00 lb Weight 113.854 kg BP Systolic 128 mmHg BP Diastolic 72 mmHg Heart Rate 80 /min Body Temperature 97.4 F 02/15/2012 2:50pm Weight 250.00 lb Weight 113.400 kg BP Systolic 110 mmHg BP Diastolic 76 mmHg Heart Rate 76 /min Body Temperature 98.4 F 12/13/2011 2:29pm Weight 256.00 lb Weight 116.122 kg BP Systolic 110 mmHg BP Diastolic 80 mmHg Heart Rate 72 /min Height 68.5 inches 5'8.50" BMI (Body Mass Index) 38.4 kg/m2 12/05/2011 4:20pm Weight 256.00 lb Weight 116.122 kg BP Systolic 130 mmHg BP Diastolic 74 mmHg Heart Rate 80 /min Body Temperature 97.4 F Height 69 inches 5'9" BMI (Body Mass Index) 37.8 kg/m2 O2 % BldC Oximetry 98 % 08/24/2011 2:09pm Weight 253.00 lb Weight 114.761 kg BP Systolic 138 mmHg BP Diastolic 76 mmHg Heart Rate 80 /min Body Temperature 98.2 F 05/24/2011 9:48am Weight 251.00 lb Weight 113.854 kg BP Systolic 110 mmHg BP Diastolic 70 mmHg Heart Rate 84 /min Body Temperature 98.2 F O2 % BldC Oximetry 98 % AT Room Air 03/13/2011 10:35am Weight 244.00 lb Weight 110.678 kg BP Systolic 134 mmHg BP Diastolic 72 mmHg Heart Rate 88 /min Body Temperature 97.5 F O2 % BldC Oximetry 97 % AT Room Air 07/30/2010 8:04am Weight 251.00 lb Weight 113.854 kg BP Systolic 120 mmHg BP Diastolic 80 mmHg 05/23/2010 9:11am Weight 247.00 lb Weight 112.039 kg BP Systolic 130 mmHg BP Diastolic 80 mmHg Heart Rate 76 /min Body Temperature 97.6 F 04/30/2010 10:57am Weight 246.00 lb Weight 111.586 kg BP Systolic 124 mmHg BP Diastolic 80 mmHg Heart Rate 74 /min Body Temperature 98.0 F Last Menstrual Period 0 Waist Circumference 98 on room air 03/16/2010 9:02am Weight 240.00 lb Weight 108.864 kg BP Systolic 120 mmHg BP Diastolic 74 mmHg Heart Rate 68 /min Body Temperature 97.2 F 03/09/2010 9:09am Weight 228.00 lb Weight 103.421 kg BP Systolic 120 mmHg BP Diastolic 90 mmHg Heart Rate 72 /min Body Temperature 98.0 F O2 % BldC Oximetry 98 % On Room Air 01/14/2010 3:48pm Weight 239.00 lb Weight 108.410 kg BP Systolic 140 mmHg BP Diastolic 90 mmHg Heart Rate 96 /min Body Temperature 98.8 F 12/31/2009 9:36am Weight 238.00 lb Weight 107.957 kg BP Systolic 132 mmHg BP Diastolic 80 mmHg Heart Rate 80 /min 07/17/2009 11:05am Weight 247.00 lb Weight 112.039 kg BP Systolic 128 mmHg BP Diastolic 80 mmHg Heart Rate 88 /min Body Temperature 97.7 F 06/11/2009 3:01pm Weight 247.00 lb Weight 112.039 kg BP Systolic 124 mmHg BP Diastolic 86 mmHg Heart Rate 84 /min 05/26/2009 2:43pm Weight 245.00 lb Weight 111.132 kg BP Systolic 134 mmHg BP Diastolic 78 mmHg Heart Rate 88 /min Body Temperature 98.2 F 01/01/2009 8:07am Weight 238.00 lb Weight 107.957 kg BP Systolic 126 mmHg BP Diastolic 84 mmHg Heart Rate 60 /min Body Temperature 97.4 F Respiratory Rate 12 /min 10/27/2008 11:46am Weight 239.00 lb Weight 108.410 kg BP Systolic 130 mmHg BP Diastolic 80 mmHg Heart Rate 80 /min 09/22/2008 10:02am Weight 238.00 lb Weight 107.957 kg BP Systolic 136 mmHg BP Diastolic 94 mmHg Heart Rate 71 /min Body Temperature 97.6 F Height 69 inches 5'9" BMI (Body Mass Index) 35.1 kg/m2 O2 % BldC Oximetry 97 % Results Test Date Facility Test Result H/L Range Note Laboratory test 07/08/2018 [facility] Vitamin B12 258 pg/mL N 180-914 1 finding [phone] Vitamin D Total 25(Oh) 15.3 ng/mL Low 20-50 2 Testosterone 06/07/2018 [facility] Testosterone 183 Abnormal 240-950 3 Profile [phone] ng/dL Free Testosterone ng/dl 6.41 ng/dL 4.06-15.6 4 Bioavailable Testosterone 51 ng/dL 50-190 5 Laboratory test 06/07/2018 [facility] LH (Lutenizing 2.8 mIU/mL N 2-12 6 finding [phone] Hormone) FSH (Follicle Stim Hormone) 4.3 mIU/mL N 1-20 7 TSH (Thyroid Stim Horm) 2.27 mcIU/mL N 0.34-5.60 8 T3 Total 100 ng/dL N 87-178 9 Free T4 (Free Thyroxine) 1.03 ng/dL N 0.61-1.12 10 Testosterone 05/30/2018 [facility] Testosterone 187 Abnormal 240-950 11 Profile [phone]/dL Free Testosterone ng/dl 5.42 ng/dL 4.06-15.6 12 Bioavailable Testosterone 67 ng/dL 50-190 13 Testosterone 05/21/2018 [facility] Testosterone 138 Abnormal 240-950 14, Profile [phone] ng/dL 15 Free Testosterone ng/dl 4.14 ng/dL 4.06-15.6 16 Bioavailable Testosterone 37 ng/dL Abnormal 50-190 17 Comp Metabolic Panel 05/21/2018 [facility] Sodium 139 mmol/L N 135-145 [phone] Potassium 4.2 mmol/L N 3.5-5.0 Chloride 106 mmol/L N 101-111 Co2 Carbon Dioxide 26 mmol/L N 22-32 Anion Gap 7 mmol/L N 2-11 Glucose 103 mg/dL High 70-100 Blood Urea Nitrogen 13 mg/dL N 6-24 Creatinine 0.95 mg/dL N 0.67-1.17 BUN/Creatinine Ratio 13.7 N 8-20 Calcium 9.2 mg/dL N 8.6-10.3 Total Protein 6.6 g/dL N 6.4-8.9 Albumin 4.4 g/dL N 3.2-5.2 Globulin 2.2 g/dL N 2-4 Albumin/Globulin Ratio 2.0 N 1-3 Total Bilirubin 0.60 mg/dL N 0.2-1.0 Alkaline Phosphatase 79 U/L N 34-104 Alt 22 U/L N 7-52 Ast 16 U/L N 13-39 Egfr Non- 83.9 >60 Egfr 101.5 >60 18 CBC Auto Diff 05/21/2018 [facility] White Blood 8.4 10^3/uL N 3.5-10.8 [phone] Count Red Blood Count 5.47 10^6/uL High 4.00-5.40 Hemoglobin 15.1 g/dL N 14.0-18.0 Hematocrit 45 % N 42-52 Mean Corpuscular Volume 83 fL N 80-94 Mean Corpuscular Hemoglobin 28 pg N 27-31 Mean Corpuscular HGB Conc 33 g/dL N 31-36 Red Cell Distribution Width 13 % N 10.5-15 Platelet Count 206 10^3/uL N 150-450 Mean Platelet Volume 8.1 fL N 7.4-10.4 Abs Neutrophils 5.3 10^3/uL N 1.5-7.7 Abs Lymphocytes 2.4 10^3/uL N 1.0-4.8 Abs Monocytes 0.5 10^3/uL N 0-0.8 Abs Eosinophils 0.2 10^3/uL N 0-0.6 Abs Basophils 0 10^3/uL N 0-0.2 Abs Nucleated RBC 0 10^3/uL Granulocyte % 62.9 % Lymphocyte % 28.8 % Monocyte % 5.9 % Eosinophil % 1.9 % Basophil % 0.5 % Nucleated Red Blood Cells % 0 Stool Panel 07/31/2017 [facility] C Difficile PCR SEE RESULT 19, 20 ([facility]) [phone] BELOW CBC Auto 07/31/2017 [facility] White Blood 12.4 High 3.5-1 Diff [phone] Count 10^3/uL 0.8 Red Blood Count 5.32 10^6/uL N 4.0-5.4 Hemoglobin 14.6 g/dL N 14.0-18.0 Hematocrit 43 % N 42-52 Mean Corpuscular Volume 82 fL N 80-94 Mean Corpuscular Hemoglobin 27 pg N 27-31 Mean Corpuscular HGB Conc 34 g/dL N 31-36 Red Cell Distribution Width 14 % N 10.5-15 Platelet Count 239 10^3/uL N 150-450 Mean Platelet Volume 8 um3 N 7.4-10.4 Abs Neutrophils 9.4 10^3/uL High 1.5-7.7 Abs Lymphocytes 2.4 10^3/uL N 1.0-4.8 Abs Monocytes 0.6 10^3/uL N 0-0.8 Abs Eosinophils 0.1 10^3/uL N 0-0.6 Abs Basophils 0 10^3/uL N 0-0.2 Abs Nucleated RBC 0 10^3/uL Granulocyte % 75.4 % N 38-83 Lymphocyte % 19.4 % Low 25-47 Monocyte % 4.6 % N 0-7 Eosinophil % 0.5 % N 0-6 Basophil % 0.1 % N 0-2 Nucleated Red Blood Cells % 0 Comp Metabolic Panel 07/31/2017 [facility] Sodium 139 mmol/L N 133-145 [phone] Potassium 4.1 mmol/L N 3.5-5.0 Chloride 106 mmol/L N 101-111 Co2 Carbon Dioxide 24 mmol/L N 22-32 Anion Gap 9 mmol/L N 2-11 Glucose 90 mg/dL N 70-100 Blood Urea Nitrogen 17 mg/dL N 6-24 Creatinine 0.99 mg/dL N 0.67-1.17 BUN/Creatinine Ratio 17.2 N 8-20 Calcium 9.1 mg/dL N 8.6-10.3 Total Protein 6.8 g/dL N 6.4-8.9 Albumin 4.2 g/dL N 3.2-5.2 Globulin 2.6 g/dL N 2-4 Albumin/Globulin Ratio 1.6 N 1-3 Total Bilirubin 0.90 mg/dL N 0.2-1.0 Alkaline Phosphatase 83 U/L N 34-104 Alt 16 U/L N 7-52 Ast 12 U/L Low 13-39 Egfr Non- 80.3 >60 Egfr 103.3 >60 21 Urine Drug 01/27/2017 [facility] Amphetamine Ur None Detected N None Detect SCR ED & [phone] Screen Pain Clinic Barbiturates Urine Screen None Detected N None Detect Benzodiazepine Urine Screen None Detected N None Detect Urine Cannabinoids Screen Presumptive Posi <SEE NOTE> Abnormal None Detect 22 Urine Cocaine Screen None Detected N None Detect Urine Opiates Screen Presumptive Posi <SEE NOTE> Abnormal None Detect 23 Urine Phencyclidine Screen None Detected N None Detect 24 Urinalysis Profile 01/27/2017 [facility] Urine Color Yellow N [phone] Urine Appearance Clear N Urine Specific [place] 1.057 High 1.010-1.030 Urine pH 6.0 N 5-9 Urine Urobilinogen Negative N Negative Urine Ketones 1+ Abnormal Negative Urine Protein Negative N Negative Urine Leukocytes Negative N Negative Urine Blood Negative N Negative Urine Nitrite Negative N Negative Urine Bilirubin Negative N Negative Urine Glucose Negative N Negative Stool Panel 06/14/2016 [facility] Stool For Blood SEE RESULT 25 ([facility]) [phone] BELOW Lipid Profile 06/09/2016 [facility] Triglycerides 182 mg/dL N 26 (Trig/Chol/HDL) [phone] Cholesterol 155 mg/dL N 27 HDL Cholesterol 37.9 mg/dL N 28 LDL Cholesterol 81 mg/dL N 29 Laboratory test 06/09/2016 [facility] PSA Screening 0.452 ng/mL N 0-4.000 30 finding [phone] Laboratory test 05/03/2016 [facility] Lactic Acid 1.4 mmol/L N 0.5-2.0 31 finding [phone] Hemoglobin A1c 5.7 % N Less than 6.0 32 Inr/Protime 05/03/2016 [facility] Inr 0.94 N 0.89- 1.11 [phone] Laboratory test 05/03/2016 [facility] Lipase 15 U/L N 11.0-82.0 finding [phone] C Reactive Protein 6.44 mg/L High < 5.00 33 Troponin-I (TnI) 0.01 ng/mL N <0.04 34 Comp Metabolic Panel 05/03/2016 [facility] Sodium 137 mmol/L N 133-145 [phone] Potassium 3.9 mmol/L N 3.5-5.0 Chloride 102 mmol/L N 101-111 Co2 Carbon Dioxide 25 mmol/L N 22-32 Anion Gap 10 mmol/L N 2-11 Glucose 98 mg/dL N 70-100 Blood Urea Nitrogen 14 mg/dL N 6-24 Creatinine 1.03 mg/dL N 0.67-1.17 BUN/Creatinine Ratio 13.6 N 8-20 Calcium 9.7 mg/dL N 8.6-10.3 Total Protein 7.6 g/dL N 6.4-8.9 Albumin 4.4 g/dL N 3.2-5.2 Globulin 3.2 g/dL N 2-4 Albumin/Globulin Ratio 1.4 N 1-3 Total Bilirubin 0.70 mg/dL N 0.2-1.0 Alkaline Phosphatase 70 U/L N 34-104 Alt 22 U/L N 7-52 Ast 18 U/L N 13-39 Egfr Non- 77.1 N >60 Egfr 99.1 N >60 35 CBC Auto 05/03/2016 [facility] White Blood 13.8 10^3/ uL High 3.5-10.8 Diff [phone] Count Red Blood Count 5.73 10^6/uL High 4.0-5.4 Hemoglobin 15.4 g/dL N 14.0-18.0 Hematocrit 46 % N 42-52 Mean Corpuscular Volume 81 fL N 80-94 Mean Corpuscular Hemoglobin 27 pg N 27-31 Mean Corpuscular HGB Conc 33 g/dL N 31-36 Red Cell Distribution Width 13 % N 10.5-15 Platelet Count 207 10^3/uL N 150-450 Mean Platelet Volume 8 um3 N 7.4-10.4 Abs Neutrophils 11.5 10^3/uL High 1.5-7.7 Abs Lymphocytes 1.8 10^3/uL N 1.0-4.8 Abs Monocytes 0.4 10^3/uL N 0-0.8 Abs Eosinophils 0.1 10^3/uL N 0-0.6 Abs Basophils 0 10^3/uL N 0-0.2 Abs Nucleated RBC 0.01 10^3/uL N Granulocyte % 83.3 % High 38-83 Lymphocyte % 13.0 % Low 25-47 Monocyte % 3.0 % N 1-9 Eosinophil % 0.4 % N 0-6 Basophil % 0.3 % N 0-2 Nucleated Red Blood Cells % 0 N Laboratory test 03/17/2016 [facility] Strep Screen NEG Neg finding (607)- - Laboratory test 05/12/2015 [facility] Stool Negative N Negative 36 finding [phone] Helicobacter pylori Ag Laboratory test 09/30/2012 [facility] TSH (Thyroid 1.64 miu/mL 0.34-5.60 finding [phone] Stimulating Horm) Testosterone Free 09/30/2012 [facility] Free 9.5 ng/ dL 9-30 37 & Total [phone] Testosterone ng/dl Testosterone 249 ng/dL 240-950 38 Laboratory test 09/30/2012 [facility] PSA Diagnostic 0.3 ng/mL 0-4.0 39 finding [phone] Laboratory test 08/23/2012 [facility] Strep Screen NEG Neg finding (607)- - Hemoccult 12/21/2011 [facility] House [facility] Stool-Occult NEG Neg (607)- - Blood #1 Stool-Occult Blood #2 NEG12/17/2011 Neg Stool-Occult Blood #3 NEG 12/18/2011 Neg Lipid Profile 12/14/2011 [facility] Triglyceride 289 mg/dL High 40-200 (Trig/Chol/HDL) [phone] Cholesterol 186 mg/dL Less Than 200 40 High Density Lipoprotein 32 mg/dL Low 40-60 41 Cholesterol/HDL Ratio 5.81 AVERAGE High 1-4.97 Low Density Lipoprotein 96 mg/dL Less Than 100 42 Vitamin D, 25 12/14/2011 [facility] 25-Hydroxy Vitamin <4.0 ng/mL () Hydroxy [phone] D2 25-Hydroxy Vitamin D3 22 ng/mL () 25-Hydroxy Vitamin D Total 22 ng/mL Abnormal () 43 Urine DIP 12/13/2011 [facility] House [facility] Leukocytes NEG Neg (607)- - Urine Nitrites NEG Neg Urine pH 5 5-6 Total Protein, Urine NEG Neg Urine Glucose NORM Norm Urine Ketones NEG Neg Urobilinogen NORM Norm Urine Bilirubin NEG Neg Urine Blood NEG Neg Specific [place] NA Low 1.01-1.02 Egfr (Calculated) 12/05/2011 [facility] Estimated GFR ( CALCULATED) [phone] Egfr >60 44 Egfr, -North Korean >60 45 CBC 12/05/2011 [facility] WBC 7.8 x10E3/uL 4.3-10.9 [phone] RBC 5.29 x10E6/uL 4.70-6.20 Hemoglobin 14.8 g/dL 13.0-17.0 Hematocrit 42.5 % 39.0-50.0 MCV 80.3 fl Low 82.0-98.0 MCH 28.0 pg 27.5-33.5 MCHC 34.8 g/dL 32.0-36.0 RDW 12.5 % 11.5-14.5 Platelet Count 193 x10E3/uL 130-400 MPV 10.8 fl High 6.5-10.5 Segmented Neutrophils 63.6 % 44.0-74.0 Lymphocytes 30.0 % 15.0-45.0 Monocytes 4.7 % 2.0-13.0 Eosinophils 1.4 % 0.0-6.0 Basophils 0.3 % 0.0-2.0 Neutrophil Absolute 5.0 x10E3/uL 1.4-7.0 Lymphocytes Absolute 2.3 x10E3/uL 1.0-3.4 Monocyte Absolute 0.4 x10E3/uL 0.2-1.0 Eosinophil Absolute 0.1 x10E3/uL 0.0-0.5 Basophil Absolute 0.0 x10E3/uL 0.0-0.2 Laboratory test 12/05/2011 [facility] TSH 1.660 0.350- 5.500 finding [phone] (Thyrotropin) uIU/ml Comprehensive 12/05/2011 [facility] Glucose 121 High 70- 100 Metabolic [phone] mg/dL BUN 14 mg/dL 5-21 Creatinine, Serum 0.94 mg/dL 0.60-1.30 Sodium 139 mmol/L 136-146 Potassium 3.9 mmol/L 3.5-5.3 Chloride 106 mmol/L 98-110 Carbon Dioxide 23 mmol/L 20-32 Albumin 4.6 g/dL 3.5-4.7 Protein, Total 7.1 g/dL 6.4-8.3 Calcium 9.4 mg/dL 8.4-10.4 Alkaline Phosphatase 84 U/L 10-118 Sgot (Ast) 23 U/L 3-40 SGPT (Alt) 26 U/L 7-50 Bilirubin, Total 0.50 mg/dL 0.30-1.20 Hemoglobin A1c 12/05/2011 [facility] Hemoglobin A1c 5.6 % 46, 47 [phone] Estimated Avg Glucose 114.0 mg/dL Flu Test A, B, Or A & B,Binaxn 03/13/2011 [facility] House [facility] Influenza A Antigen neg (607)- - Influenza B Antigen neg CBC Auto Diff 12/03/2010 [facility] White Blood 8.2 CUMM 4.8-10.8 [phone] Count Red Cell Count 5.44 CUMM 4.6-6.2 Hemoglobin 15.4 g/dL 14.0-18.0 Hematocrit 45 % 42-52 Mean Corpuscular Volume 83 um3 80-94 Mean Corpuscular Hemoglob 28 pg 27-31 Mean Corpuscular HGB Cone 34 g/dL 32-36 Redcell Distribution WDTH 13 % 10.5-15 Platelet Count 207 CUMM 150-450 Mean Platelet Volume 8.2 um3 7.4-10.4 Gran % 51.2 % 38-83 Lymph % 39.1 % 25-47 Mononuclear % 7.2 % 1-9 Eosinophil % 2.2 % 0-6 Basophil % 0.3 % 0-2 Abs Lymphs 3.2 1.0-4.8 Abs Mononuclear 0.6 0-0.8 Absolute Neutrophil Count 4.2 1.5-7.7 Abs Eosinophils 0.2 0-0.6 Abs Basophils 0 0-0.2 Comp Metabolic Panel 12/03/2010 [facility] Sodium 138 mmol/L 135-145 [phone] Potassium 3.7 mmol/L 3.5-5.0 Chloride 104 mmol/L 101-111 Co2 (Carbon Dioxide) 25.0 mmol/L 22-32 Anion Gap 9.0 mmol/L 2-11 48 Glucose 117 mg/dL High 70-100 BUN 9 mg/dL 6-24 Creatinine 1.20 mg/dL 0.50-1.40 One Over Creatinine 0.80 BUN/Creatinine Ratio 7.5 Low 8-20 Calcium 9.1 mg/dL 8.1-9.9 Total Protein 7.5 GM/DL 6.2-8.1 Albumin 4.1 GM/DL 3.6-5.4 Globulin 3.4 GM/DL 2-4 Albumin/Globulin Ratio 1.2 1-3 Bilirubin Total 0.6 mg/dL 0.4-1.5 49 Alkaline Phosphatase 76 U/L 39-117 Alt (SGPT) 27 U/L 17-63 Ast (Sgot) 23 U/L 12-42 eGFR Non- 66.1 > 60 eGFR 85.0 > 60 50 Urinalysis 12/03/2010 [facility] Ua Color YELLOW Yellow W/Microscopic [phone] Appearance-Urine CLEAR Clear Specific [place]-Ur 1.017 1.010-1.030 Esterase-Urine NEGATIVE Negative Nitrite NEGATIVE Negative [id number] NEGATIVE Negative Protein-Urine NEGATIVE Negative PH-Urine 7.5 5-9 Blood-Urine 2+ Abnormal Negative Ketones-Urine 1+ Abnormal Negative Bilirubin-Ur NEGATIVE Negative Glucose-Urine NEGATIVE Negative WBC-Urine 0-2 0-5 RBC-Urine 15-20 Abnormal 0-2 Bacteria-Urine TRACE None Urine DIP 07/30/2010 [facility] House [facility] Leukocytes NEG Neg (607)- - Urine Nitrites NEG Neg Urine pH 5-6 5-6 Total Protein, Urine NEG Neg Urine Glucose NORM Norm Urine Ketones NEG Neg Urobilinogen NORM Norm Urine Bilirubin NEG Neg Urine Blood NEG Neg Specific [place] N/A Low 1.01-1.02 Urine DIP 05/23/2010 [facility] Leukocytes neg Neg (607)- - Urine Nitrites neg Neg Urine pH 5 5-6 Total Protein, Urine trace Neg Urine Glucose norm Norm Urine Ketones neg Neg Urobilinogen norm Norm Urine Bilirubin neg Neg Urine Blood neg Neg Specific [place] n/a Low 1.01-1.02 Urine DIP 07/17/2009 [facility] House [facility] Leukocytes NEG Neg (607)- - Urine Nitrites NEG Neg Urine pH 5 5-6 Total Protein, Urine NEG Neg Urine Glucose NORM Norm Urine Ketones NEG Neg Urobilinogen NORM Norm Urine Bilirubin NEG Neg Urine Blood NEG Neg Specific [place] N/A Low 1.01-1.02 Comp Metabolic 07/17/2009 [facility] Sodium 138 mmol/ L 135-145 51 Panel [phone] Potassium 4.0 mmol/L 3.5-5.0 Chloride 107 mmol/L 101-111 Co2 (Carbon Dioxide) 24.0 mmol/L 22-32 Anion Gap 7.0 mmol/L 2-11 52 Glucose 100 mg/dL 70-100 53 BUN 9 mg/dL 6-24 Creatinine 0.90 mg/dL 0.50-1.40 One Over Creatinine 1.10 BUN/Creatinine Ratio 10.0 8-20 Calcium 9.3 mg/dL 8.1-9.9 54 Total Protein 6.6 GM/DL 6.2-8.1 Albumin 4.0 GM/DL 3.6-5.4 Globulin 2.6 GM/DL 2-4 Albumin/Globulin Ratio 1.5 1-3 Bilirubin Total 0.6 mg/dL 0.4-1.5 55 Alkaline Phosphatase 80 U/L 39-117 Alt (SGPT) 35 U/L 17-63 Ast (Sgot) 26 U/L 12-42 eGFR Non- 98.8 > 60 eGFR 119.6 > 60 56 Liver Function 07/17/2009 [facility] Bilirubin Direct 0.1 mg/dL 0.1-0.5 Panel [phone] Indirect Bilirubin 0.5 mg/dL 0.1-0.75 Laboratory test finding 07/17/2009 [facility] Lipase 27 U/L 22-51 [phone] Amylase 18 U/L Low 30-125 CBC With 07/17/2009 [facility] White Blood 8.3 CUMM 4.8-10.8 Electronic Diff [phone] Count Red Cell Count 5.53 CUMM 4.6-6.2 Hemoglobin 15.6 g/dL 14.0-18.0 Hematocrit 46 % 42-52 Mean Corpuscular Volume 83 um3 80-94 Mean Corpuscular Hemoglob 28 pg 27-31 Mean Corpuscular HGB Cone 34 g/dL 32-36 Redcell Distribution WDTH 13 % 10.5-15 Platelet Count 202 CUMM 150-450 Mean Platelet Volume 7.8 um3 7.4-10.4 Gran % 59.8 % 38-83 Lymph % 32.0 % 25-47 Mononuclear % 5.8 % 1-9 Eosinophil % 2.1 % 0-6 Basophil % 0.3 % 0-2 Abs Lymphs 2.7 1.0-4.8 Abs Mononuclear 0.5 0-0.8 Absolute Neutrophil Count 5.0 1.5-7.7 Abs Eosinophils 0.2 0-0.6 Abs Basophils 0 0-0.2 Urine DIP 05/26/2009 [facility] House [facility] Leukocytes neg Neg (607)- - Urine Nitrites neg Neg Urine pH 5 5-6 Total Protein, Urine nl Neg Urine Glucose nl Norm Urine Ketones nl Neg Urobilinogen nl Norm Urine Bilirubin nl Neg Urine Blood nl Neg Specific [place] n/a Low 1.01-1.02 CBC With 01/01/2009 [facility] White Blood 6.8 CUMM 4.8-10.8 Electronic Diff [phone] Count Red Cell Count 5.46 CUMM 4.6-6.2 Hemoglobin 15.5 g/dL 14.0-18.0 Hematocrit 46 % 42-52 Mean Corpuscular Volume 84 um3 80-94 Mean Corpuscular Hemoglob 29 pg 27-31 Mean Corpuscular HGB Cone 34 g/dL 32-36 Redcell Distribution WDTH 13 % 10.5-15 Platelet Count 199 CUMM 150-450 Mean Platelet Volume 8.0 um3 7.4-10.4 Gran % 60.0 % 38-83 Lymph % 32.7 % 25-47 Mononuclear % 4.8 % 1-9 Eosinophil % 2.0 % 0-6 Basophil % 0.5 % 0-2 Abs Lymphs 2.2 1.0-4.8 Abs Mononuclear 0.3 0-0.8 Absolute Neutrophil Count 4.1 1.5-7.7 Abs Eosinophils 0.1 0-0.6 Abs Basophils 0 0-0.2 Comp Metabolic Panel 01/01/2009 [facility] Sodium 139 mmol/L 135-145 [phone] Potassium 4.1 mmol/L 3.5-5.0 Chloride 104 mmol/L 101-111 Co2 (Carbon Dioxide) 28.0 mmol/L 22-32 Anion Gap 7.0 mmol/L 2-11 57 Glucose 96 mg/dL 70-100 58 BUN 11 mg/dL 6-24 Creatinine 1.20 mg/dL 0.50-1.40 One Over Creatinine 0.80 BUN/Creatinine Ratio 9.2 8-20 Calcium 9.2 mg/dL 8.1-9.9 59 Total Protein 7.1 GM/DL 6.2-8.1 Albumin 4.3 GM/DL 3.6-5.4 Globulin 2.8 GM/DL 2-4 Albumin/Globulin Ratio 1.5 1-3 Bilirubin Total 1.1 mg/dL 0.4-1.5 60 Alkaline Phosphatase 83 U/L 39-117 Alt (SGPT) 29 U/L 17-63 Ast (Sgot) 22 U/L 12-42 eGFR Non- 70.9 > 60 eGFR 85.8 > 60 61 Yoni Hope 01/01/2009 [facility] Ebv Vca Positive Negative Comprehensive [phone] Igg Ebv Vca Igm Negative Negative Ebna Positive Negative Ebv Interpretation SEE BELOW () 62 Laboratory test 01/01/2009 [facility] TSH 2.63 MIU/ ML 0.34-5.60 finding [phone] Lyme Western 01/01/2009 [facility] Lyme Disease Negative Negative 63 Blot Specialty [phone] Igg Western Blot Lyme Disease Igm Western Blot Negative Negative 64 Lyme Disease Interpretation . () 65 Laboratory test 01/01/2009 [facility] Mumps Igg Negative Negative 66 finding [phone] Rubella Igg Positive Positive 67 Rubeola Igg AB Positive Negative 68 Vitamin D.25 01/01/2009 [facility] 25-Hydroxy Vitamin <4.0 ng/mL () Hydroxy [phone] D2 25-Hydroxy Vitamin D3 26 ng/mL () 25-Hydroxy Vitamin D Total 26 ng/mL () 69 1 Normal Range 180 to 914 Indeterminate Range 145 to 180 Deficient Range <145 2 [id number] ADDITIONAL INFORMATION Testing performed by Liquid Chromatography-Tandem Mass Spectrometry (LC-MS/MS). This test was developed and its performance characteristics determined by [facility] in a manner consistent with CLIA requirements. This test has not been cleared or approved by the U.S. Food and Drug Administration. 4 ADDITIONAL INFORMATION Testing performed by Equilibrium Dialysis. This test was developed and its performance characteristics determined by [facility] in a manner consistent with CLIA requirements. This test has not been cleared or approved by the U.S. Food and Drug Administration. 5 ADDITIONAL INFORMATION Testing performed by Differential Precipitation. This test was developed and its performance characteristics determined by [facility] in a manner consistent with CLIA requirements. This test has not been cleared or approved by the U.S. Food and Drug Administration. Test Performed by: [facility] [place] [id number] 11 ADDITIONAL INFORMATION Testing performed by Liquid Chromatography-Tandem Mass Spectrometry (LC-MS/MS). This test was developed and its performance characteristics determined by [facility] in a manner consistent with CLIA requirements. This test has not been cleared or approved by the U.S. Food and Drug Administration. 12 ADDITIONAL INFORMATION Testing performed by Equilibrium Dialysis. This test was developed and its performance characteristics determined by [facility] in a manner consistent with CLIA requirements. This test has not been cleared or approved by the U.S. Food and Drug Administration. 13 ADDITIONAL INFORMATION Testing performed by Differential Precipitation. This test was developed and its performance characteristics determined by [facility] in a manner consistent with CLIA requirements. This test has not been cleared or approved by the U.S. Food and Drug Administration. Test Performed by: [facility] - [address] [address] 14 [id number] 15 ADDITIONAL INFORMATION Testing performed by Liquid Chromatography-Tandem Mass Spectrometry (LC-MS/MS). This test was developed and its performance characteristics determined by [facility] in a manner consistent with CLIA requirements. This test has not been cleared or approved by the U.S. Food and Drug Administration. 16 ADDITIONAL INFORMATION Testing performed by Equilibrium Dialysis. This test was developed and its performance characteristics determined by [facility] in a manner consistent with CLIA requirements. This test has not been cleared or approved by the U.S. Food and Drug Administration. 17 ADDITIONAL INFORMATION Testing performed by Differential Precipitation. This test was developed and its performance characteristics determined by [facility] in a manner consistent with CLIA requirements. This test has not been cleared or approved by the U.S. Food and Drug Administration. Test Performed by: [facility] [address] [place] [address] 18 Because ethnic data is not always readily available, this report includes an eGFR for both -Americans and non- Americans. The National Kidney Disease Education Program (NKDEP) does not endorse the use of the MDRD equation for patients that are not between the ages of 18 and 70, are , have extremes of body size, muscle mass, or nutritional status, or are non- or non-. According to the National Kidney Foundation, irrespective of diagnosis, the stage of the disease is based on the level of kidney function: Stage Description GFR(mL/min/1.73 m(2)) 1 Kidney damage with normal or decreased GFR 90 2 Kidney damage with mild decrease in GFR 60-89 3 Moderate decrease in GFR 30-59 4 Severe decrease in GFR 15-29 5 Kidney failure <15 (or dialysis) 19 [id number] 20 SEE RESULT BELOW Name: HARRY CANELA : [address]: Melecio Tai III, NP Acct: [id number] Unit: [id number] AGE: 51 Location: [facility] Re07/31/17 SEX: M Status: REG REF SPEC: [id number] MATA: 07/31/17-[address]: Melecio Tai III, NP REQ: [id number] RECD: 07/31/17153 STATUS: SHASHANK PAYTON DR: Lyla Stringer MD _ SOURCE: STOOL SPDESC: ORDERED: C. diff PCR, Stool Culture, Fecal Lactoferr, Occult Bl, Scn, O P: Gene COMMENTS: [id number] Procedure Result Reported Site Stool Culture Final 08/02/17- 1257 ML Result No enteric pathogens isolated Testing for Salmonella, Shigella, Aeromonas, Plesiomonas, Yersinia and Campylobacter are included in a Stool Culture. Vibrio spp not routinely tested for in a stool culture. If testing is desired, please request specifically when placing test order. Sensitivities not routinely performed on stool isolates, as antibiotics may prolong the carriage rate of bacteria. Please contact the microbiology lab if sensitivities are required. Stool Specimen Description Final 07/31/17- 1945 ML Stool Color Brown Stool Form Nonformed Stool Consistency Mucoid Shiga Toxin 1 2 Final 08/01/17- 1248 ML Organism 1 Negative Shiga Toxin 1 2 Immunochromatographic Assay CONTINUED ON NEXT PAGE DEPARTMENT OF PATHOLOGY, [address] [place] [address] Angel Walton M.D. Director [facility] # [id number] Patient: HARRY CANELA [id number] (Continued) Specimen: [id number] Collected: 07/31/17-1499 Received: 07/31/17-1534 (Continued) Procedure Result Reported Site Shiga Toxin 1 2 Final (continued) 08/01/17- 1247 C. difficile PCR Final 07/31/17- 2027 ML Organism 1 027 Presumptive NEGATIVE Organism 2 Toxigenic C.diff NEGATIVE Fecal Lactoferrin (Stool WBC) Final 07/31/17- 2006 ML Fecal Lactoferrin Positive by Immunoassay TEST LIMITATIONS: Assay detects elevated levels of lactoferrin released from fecal leukocytes as a marker of intestinal inflammation. The test may not be appropriate in immunocompromised persons. Fecal samples from breast fed infants should not be used with this assay. Stool Occult Blood (1) Final 07/31/17- 194 ML Stool Occult Blood Positive Collection Date (1) 07/31/17 O P: Giardia/Cryptospor Screen Final 08/01/17- 0941 ML Organism 1 Neg Cryptosporidium/Giardia Giardia and cryptosporidium antigen testing performed by enzyme immunoassay. If patient is immunocompromised or has traveled to or is from a developing country, a full ova and parasite exam with microscopic (OPMIC) is recommended. All samples will be held one month in case full ova and parasite testing is requested. Contact the Microbiology Department at [phone]. TEST LIMITATIONS: As with all diagnostic procedures, the results obtained should be used in conjunction with other clinical information available the physician, including confirmation CONTINUED ON NEXT PAGE DEPARTMENT OF PATHOLOGY, [address] [place] [address] Angel Walton M.D. Director [facility] # [id number] Patient: HARRY CANELA [id number] (Continued) Specimen: [id number] Collected: 07/31/17 Received: 07/31/17 (Continued) Procedure Result Reported Site O P: Giardia/Cryptospor Screen Final (continued) 08/01/17940 by another method. Negative results can occur in samples containing antigen below lower limits of detection of the assay. One negative specimen does not rule out the possibility of a parasitic infection. To improve detection it is recommended that three specimens be collected on separate days over a period of not more than seven days. The use of colonic washes, aspirates or other diluted sample types has not been established and could affect the performance of the assay. Stool samples contaminated with an oily or particulate base (eg. Barium, mineral oil etc.) could interfere with the test and are not recommended. * ML - Main Lab . END OF REPORT DEPARTMENT OF PATHOLOGY, [address] [place] [address] Angel Walton M.D. Director [facility] # [id number] 21 Because ethnic data is not always readily available, this report includes an eGFR for both -Americans and non- Americans. The National Kidney Disease Education Program (NKDEP) does not endorse the use of the MDRD equation for patients that are not between the ages of 18 and 70, are , have extremes of body size, muscle mass, or nutritional status, or are non- or non-. According to the National Kidney Foundation, irrespective of diagnosis, the stage of the disease is based on the level of kidney function: Stage Description GFR(mL/min/1.73 m(2)) 1 Kidney damage with normal or decreased GFR 90 2 Kidney damage with mild decrease in GFR 60-89 3 Moderate decrease in GFR 30-59 4 Severe decrease in GFR 15-29 5 Kidney failure <15 (or dialysis) 22 Presumptive Positive Presumptive positive results are unconfirmed. 23 Presumptive Positive Presumptive positive results are unconfirmed. 24 The urine specimen was tested at the listed cutoffs: Drug class test level (ng/mL) Amphetamines 500 Barbiturates 200 Benzodiazepine metabolites 200 Cocaine metabolites 150 Cannabinoids 50 Opiates 300 Pcp 25 Specimen was received without chain of custody. Results should be used for medical purposes only. 25 SEE RESULT BELOW Name: HARRY CANELA : [address]: Lyla Stringer MD Acct: [id number] Unit: [id number] AGE: 50 Location: [facility] Re06/14/16 SEX: M Status: REG REF SPEC: [id number] MATA: 06/14/[address]: Lyla Stringer MD REQ: [id number] RECD: 06/15/16 STATUS: COMP _ SOURCE: STOOL SPDESC: ORDERED: Hemoccult, Stool Culture, Fecal Lactoferr, O P: Giar/Crypt COMMENTS: C. Difficile toxin testing is not performed on formed stool specimens. Test of cure on positive patients is not recommended. Verbal to PADMINI FRANCISCO by [id number] at 1125 on 06/15/16. Procedure Result Reported Site Stool Culture Final 06/17/16- 1356 ML Result No enteric pathogens isolated Testing for Salmonella, Shigella, Aeromonas, Plesiomonas, Yersinia and Campylobacter are included in a Stool Culture. Vibrio spp not routinely tested for in a stool culture. If testing is desired, please request specifically when placing test order. Sensitivities not routinely performed on stool isolates, as antibiotics may prolong the carriage rate of bacteria. Please contact the microbiology lab if sensitivities are required. Stool Specimen Description Final 06/15/16- 1123 ML Stool Color Brown Stool Form Formed Stool Consistency Firm Shiga Toxin 1 2 Final 06/16/16- 1032 ML Organism 1 Negative Shiga Toxin 1 2 CONTINUED ON NEXT PAGE * ML=Testing performed at [facility] DEPARTMENT OF PATHOLOGY, [address] [place] [address] Angel Walton M.D. Director [facility] # [id number] Patient: HARRY CANELA [id number] (Continued) Specimen: [id number] Collected: 06/14/16 Received: 06/15/16-1004 (Continued) Procedure Result Reported Site Shiga Toxin 1 2 Final (continued) 06/16/161031 Immunochromatographic Assay Fecal Lactoferrin (Stool WBC) Final 06/15/16- 1353 ML Fecal Lactoferrin Negative by Immunoassay TEST LIMITATIONS: Assay detects elevated levels of lactoferrin released from fecal leukocytes as a marker of intestinal inflammation. The test may not be appropriate in immunocompromised persons. Fecal samples from breast fed infants should not be used with this assay. Stool Occult Blood Final 06/15/16- 1223 ML Stool Occult Blood Negative O P: Giardia/Cryptospor Screen Final 06/16/16- 1031 ML Organism 1 Neg Cryptosporidium/Giardia Giardia and cryptosporidium antigen testing performed by enzyme immunoassay. If patient is immunocompromised or has traveled to or is from a developing country, a full ova and parasite exam with microscopic (OPMIC) is recommended. All samples will be held one month in case full ova and parasite testing is requested. Contact the Microbiology Department at [phone]. TEST LIMITATIONS: As with all diagnostic procedures, the results obtained should be used in conjunction with other clinical information available the physician, including confirmation by another method. Negative results can occur in samples containing antigen below lower limits of detection of the assay. One negative specimen does not rule out the possibility of a parasitic infection. To improve detection CONTINUED ON NEXT PAGE * ML=Testing performed at Main Lab DEPARTMENT OF PATHOLOGY, [address] [place] [address] Angel Walton M.D. Director [facility] # [id number] Patient: HARRY CANELA Marisela [id number] (Continued) Specimen: [id number] Collected: 06/14/16 Received: 06/15/16 (Continued) Procedure Result Reported Site O P: Giardia/Cryptospor Screen Final (continued) 06/16/161031 it is recommended that three specimens be collected on separate days over a period of not more than seven days. The use of colonic washes, aspirates or other diluted sample types has not been established and could affect the performance of the assay. Stool samples contaminated with an oily or particulate base (eg. Barium, mineral oil etc.) could interfere with the test and are not recommended. * ML - MAIN LAB ([facility]) . END OF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
--- OUTSIDE RECORDS SUMMARY | 2018-07-27 11:24 | XMS REPORT | Continuity of Care Document ---
:1965 External Reference #:[id number] Author Name Jose Sky M.D. Address [address] [place] [address] Care Team Providers Name Role Phone Emi Hall NP Care Team Information Learning And Development Assistant Unavailable Payers Date Identification Numbers Payment Provider Subscriber Effective: 2011 Policy Number: [id number] [facility] Harry Canela Expires: 2011 Group Name: BC/BS of [facility] [address] [address] PayID: [id number] GUY [place]rell[place] [id number] Effective: 2012 Policy Number: [facility] Harry Canela [id number] Expires: 2014 PayID: [id number] [address] [address] [place] [address] Effective: 2016 Policy Number: [id number] [facility] Harry Canela Medicaid Expires: 2017 PayID: [id number] [address] [place] [address] Effective: 2014 Policy Number: [id number] [employer] Harry Canela Expires: 2016 PayID: [id number] [address] [address] [place] [address] Effective: 2017 Policy Number: [id number] [employer] Harry Canela PayID: [id number] [address] [address] [place] [address] Onset: 2011 Policy Number: [id number] [employer] Harry Canela [place]: [id number] [place] [address] Onset: 2013 Policy Number: [id number] [employer] Harry Canela PayID: GUARD 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 Used to work for [employer] in [employer] Tobacco Use Start: Unknown End: Former Cigarette Smoker Quit age 35. 17-33. Unknown 1 pack q4 days. ETOH Use Occasionally consumes alcohol Recreational Drug Use Regularly uses Marijuana Tobacco Use Start: Unknown End: Patient is a former Unknown smoker Allergies, Adverse Reactions, Alerts Date Description Reaction Status Severity Comments 09/22/2008 Dilaudid psychosis Active gets violentLY Sick 09/22/2008 Demerol psychosis Active 09/22/2008 Ibuprofen rash Active 09/22/2008 Adhesives rash Active 11/18/2014 Lisinopril Active cough 01/29/2017 Ketamine Active emesis, "" Medications Medication Date Status Form Strength Qnty SIG Indications Ordering Provider Symbicort 05/31 Active Aerosol 80-4.5mcg 6.900 inhale 2 Emi /Act gm puffs by LEONORA Hall mouth 2 times per day for asthma Econazole Nitrate 05/30 Active Cream 1% 30gm apply to affected LEONORA Hall areas twice daily x 2 weeks Cimetidine 05/18 Active Tablets 300mg 60tab take 1 K21.9 Phan s tablet by Tanya mouth two MD times daily for heartburn Cozaar 12/10 Active Tablets 50mg 30tab 1 po qd ricky Stringer M.D., R.D. Cpap 06/09 Active New cpap machine sarah Stringer M.D., R.D. heated humidifie r dx g47.33 Spacer 03/02 Active use as directed Earnestine Quintanilla, with M.D. inhaler Ventolin HFA 06/18 Active Aerosol 108(90Bas 8gm 1-2 puffs e) four Sky, mcg/Act times a M.D. 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 07/23 for week, then 1 twice a day for one week, then 2 in the morning and 1 at night for one week, then 2 Valsartan 05/05 Hx Tablets 80mg 30tab 1 by s mouth Siomara, - every day M.D., R.D. 12/03 Flovent HFA 03/07 Hx Aerosol 110mcg/Ac 12gm Steroid Jenny t Inhaler- P. Blegen, - inhale 2 M.D. 07/23 puffs mouth two times a day with spacer and rinse mouth after use (Since Qvar Not Covered) Amoxicillin/Clavu 03/02 Hx Tablets 875-125mg 20tab 1 by J01.90 Jenny madison s mouth P. Blegen, - twice a M.D. 01/29 day 10 days For Sinus Infection Flovent HFA 06/18 Hx Aerosol 110mcg/Ac 2unit 1 Inhale Phan t s by mouth Tanya, - puff 2 MD 11/08 times day for asthma Qvar 06/18 Hx Aerosol 40mcg/Act 8.700 2 puff Jenny gm twice a P. Blegen, - day, Claudia 03/08 rinse mouth after Pulmicort 06/14 Hx Aerosol 180mcg/Ac 2unit 1 puffs Phan Flexhal t s twice a Tanya, - day [...] Hx Tablets 7.5mg 30tab take one M70.10 Lyla s by mouth Siomara, - up to two MRob., R.D. 05/06 times day as needed for pain Valsartan 02/24 Hx Tablets 40mg 60tab 2 tab by Melecio s mouth [place] - daily III, [employer]-C 05/05 Nystatin 12/09 Hx Cream [id number] 30gm apply to t/GM face rash Mere, - twice a [employer]C Diovan 11/18 Hx Tablets 80mg 30tab 1 by I10 s mouth Siomara, - every day Claudia, R.D. 06/14 Metformin HCL 11/18 Hx Tablets 500mg 20tab 1 by 278.00 s mouth Mere, - once a [employer]-C 03/09 day vacation and ran out of meds Hydrocodone-Aceta 10/04 Hx Tablets 5-325mg 45tab 1-2 po 959.5 Lyla s qid prtimothy Stringer, - Claudia, R.D. 06/14 Azithromycin 08/13 Hx Tablets 250mg 6tabs take 2 466.0 Kristie tablets Mere, - today [employer]-C 02/10 then tablet daily for the next 4 days Ventolin HFA 08/13 Hx Aerosol 108(90Bas 1unit 1 puff Melecio e) s q4hr as [place] - mcg/Act needed III, [employer]C 11/08 cough, wheeze, shortness of breath Benzonatate 08/13 Hx Capsules 100mg 30cap 1 or 2 466.0 s tabs po Mere, - tid prn [employer] 06/14 coughing Viagra 09/30 Hx Tablets 50mg 6tabs 05/15-1 tab 302.72 Lyla before Siomara, - brittany Taylor, R.DSue 03/02 Lisinopril 09/30 Hx Tablets 10mg 30tab 1 by 796.2 s mouth Mere, - every day [employer] 10/01 Methylprednisolon 08/23 Hx Tablets 4mg 1tabs use as 462 Claire e Dose directed Kendal Gannon M.D. 08/13 Tamiflu 04/27 Hx Capsules 75mg 10cap one po qd s for 10 K.W. - itzel Barnett, 06/14 Claudia Methocarbamol 03/13 Hx Tablets 500mg 30tab 1 po qid 723.1 s as needed Mere, - for [employer]C 06/14 muscle spasm Tramadol HCL 03/13 Hx Tablets 50mg 30thi 1-2 723.1 rty tablets Mere, - po q 4-6 [employer] 06/14 hours prn pain Ergocalciferol 12/17 Hx Tablets 50,000Uni 8tabs take 1 Kristie ts tablet Mere, - twice a [employer] 06/14 week 4 weeks Avelox 05/24 Hx Tablets 400mg 10tab Take 1 238.2 s tablet po Mere, - daily X [employer] 02/14 10 Prednisone 05/24 Hx Tablets 20mg 10tab 2 tabs po 238.2 Kristei s qday x 5 Mere, - days [employer]C 02/14 Nasonex 05/24 Hx Suspension 50mcg/Act 17gm 2 sprays 238.2 in each Mere, - nostril [employer] 03/02 qd Ventolin HFA 03/13 Hx Aerosol 108(90Bas 1unit 1 puff 238.2 Shawnti R. /2010 e) mcg/ac s q4hr prn Storm, - cough, [employer] 08/13 wheeze, /2013 shortness of breath Flovent HFA 03/13 Hx Aerosol 110mcg/Ac 1Mont 2 puff Shawnti R. /2010 t h bid Storm, - [employer] 06/14 Albuterol Sulfate 03/13 Hx Nebulizer (2.5mg/3M 1box use one 238.2 Shawnti R. /2010 L) 0.083% vial in Storm, - nebulizer [employer] 03/02 qid prn wheeze/sh ortness of breath Zofran Odt 05/23 Hx Tablets 4mg 20tab 1 every 8 535.50 Laura Dispers s hours for Don, - nausea OFFICE EQUIPMENT MECHANIC 03/13 Asmanex 30 04/30 Hx Aerosol 220mcg/In 1unit 1 puff qd Jenny Metered Doses /2009 h s for 2-4 P. Blegen, - weeks- M.D. 03/13 rinse mouth after use Zithromax Z-José 04/30 Hx Tablets 250mg 6tabs two po qd Jenny /2009 today and P. Blegen, - then one M.D. 03/13 po qd 4 days Avelox 03/09 Hx Tablets 400mg 10tab one tab 482.9 Laura s daily for Don, - 10 days OFFICE EQUIPMENT MECHANIC 03/13 Prednisone 03/09 Hx Tablets 20mg 10tab 2 tabs po 482.9 Laura s qday x 5 Don, - days OFFICE EQUIPMENT MECHANIC 03/13 Aceta-Gesic 03/09 Hx Tablets 30-325mg Laura Don - OFFICE EQUIPMENT MECHANIC 03/09 Tylenol/Codeine 03/09 Hx Tablets 300-30mg 30tab 1-2 tabs Laura # s every 6 [place], - hours as OFFICE EQUIPMENT MECHANIC 02/14 needed for pain and cough No School 2 Days 03/09 Hx 482.9 Laura Don, - OFFICE EQUIPMENT MECHANIC 02/14 Fluticasone 12/20 Hx Suspension 50mcg/Act 1mont 2 sprays 477.9 Shawnti R. Propionate h each nare Storm, - daily for [employer]C 03/02 rhinitis Ergocalciferol 01/05 Hx Tablets 50,000Uni 8tabs 1 po Shawnti R. Tablets ts weekly Storm, - for [employer]C 02/14 vitamin d deficienc y, repeat level in 8 weeks Nasonex 10/27 Hx Suspension 50mcg/Act 1mont 2 sprays 477.9 Shawnti R. /2008 h each Storm, - nostril [employer]C 12/20 daily for rhinitis Hydroxyzine HCL 10/27 Hx Tablets 10mg 30tab 1 po q6hr 300.00 Shawnti R. /2008 s prn Storm, - anxiety [employer]C 08/13 Proventil HFA 09/22 Hx Aerosol 108mcg/Ac 2unit 2 puffs 238.2 t s q4h prn Ochoa, - cough, OFFICE EQUIPMENT MECHANIC 03/13 wheeze, shortness of breath Zithromax Z-José 09/22 Hx Tablets 250mg 6tabs 2 po on 238.2 Shawnti R. /2008 day 1, 1 Storm, - po on [employer]C 10/27 days 2- Robitussin ac 09/22 Hx 150ml 1-2 tsp 238.2 Shawnti R. /2008 po q4-6hr Storm, - prn [employer]C 10/27 cough/alison n Medications Administered in Office Medication Date Status Form Strength Qnty SIG Indications Ordering Provider TB,Intradermal Administered Injection Lab and (PPD, Mantoux) 016 Office Services Immunizations CPT Code Status Date Vaccine Lot # [id number] Given 04/27/2012 Influenza Vaccine-Preservative Free 3 Yrs And [id number] Given 02/05/2009 MMR (Measles,Mumps,Rubella) [id number] Refused 07/23/2017 Influenza Virus Vaccine, Quadrivalent, 3 Yr > Quad , Preserv Free Vital Signs Date Vital Result Comment 06/05/2018 10:45am Weight 264.00 lb Weight 119.750 [...] Date Facility Test Result H/L Range Note Testosterone [facility] Testosterone 183 ng /dL Abnormal 240-950 1 Profile 9 [phone] Free Testosterone ng/dl 6.41 ng/dL 4.06-15.6 2 Bioavailable Testosterone 51 ng/dL 50-190 3 Laboratory test 06/07/2018 [facility] LH (Lutenizing 2.8 mIU/mL N 2-12 4 finding [phone] Hormone) FSH (Follicle Stim Hormone) 4.3 mIU/mL N 1-20 5 TSH (Thyroid Stim Horm) 2.27 mcIU/mL N 0.34-5.60 6 T3 Total 100 ng/dL N 87-178 7 Free T4 (Free Thyroxine) 1.03 ng/dL N 0.61-1.12 8 Testosterone 05/30/2018 [facility] Testosterone 187 Abnormal 240-950 9 Profile [phone] ng/dL Free Testosterone ng/dl 5.42 ng/dL 4.06-15.6 10 Bioavailable Testosterone 67 ng/dL 50-190 11 Testosterone 05/21/2018 [facility] Testosterone 138 Abnormal 240-950 12, Profile [phone] ng/dL 13 Free Testosterone ng/dl 4.14 ng/dL 4.06-15.6 14 Bioavailable Testosterone 37 ng/dL Abnormal 50-190 15 Comp Metabolic Panel 05/21/2018 [facility] Sodium 139 mmol/L N 135-145 [phone] Potassium 4.2 mmol/L N 3.5-5.0 Chloride 106 [...] Egfr Non- 83.9 >60 Egfr 101.5 >60 16 CBC Auto Diff 05/21/2018 [facility] White Blood 8.4 10^3/uL N 3.5-10.8 [phone] Count Red Blood Count 5.47 10^6/uL High [...] Blood Cells % 0 Stool Panel 07/31/2017 [facility] C Difficile PCR SEE RESULT 17, 18 (CMC) [phone] BELOW CBC Auto 07/31/2017 [facility] White Blood 12.4 High 3.5-1 Diff [phone] Count 10^3/uL 0.8 Red Blood Count 5.32 [...] Cells % 0 Comp Metabolic Panel 07/31/2017 [facility] Sodium 139 mmol/L N 133-145 [phone] Potassium 4.1 mmol/L N 3.5-5.0 Chloride 106 [...] Egfr Non- 80.3 >60 Egfr 103.3 >60 19 Urine Drug 01/27/2017 [facility] Amphetamine Ur None Detected N None Detect SCR ED & [phone] Screen Pain Clinic Barbiturates Urine Screen None Detected N None Detect Benzodiazepine Urine Screen None Detected N None Detect Urine Cannabinoids Screen Presumptive Posi <SEE NOTE> Abnormal None Detect 20 Urine Cocaine Screen None Detected N None Detect Urine Opiates Screen Presumptive Posi <SEE NOTE> Abnormal None Detect 21 Urine Phencyclidine Screen None Detected N None Detect 22 Urinalysis Profile 01/27/2017 [facility] Urine Color Yellow N [phone] Urine Appearance Clear N Urine Specific [place] 1.057 High 1.010-1.030 Urine pH 6.0 N 5-9 Urine Urobilinogen Negative N Negative Urine Ketones 1+ Abnormal Negative Urine Protein Negative N Negative Urine Leukocytes Negative N Negative Urine Blood Negative N Negative Urine Nitrite Negative N Negative Urine Bilirubin Negative N Negative Urine Glucose Negative N Negative Stool Panel 06/14/2016 [facility] Stool For Blood SEE RESULT 23 (CMC) [phone] BELOW Lipid Profile 06/09/2016 [facility] Triglycerides 182 mg/dL N 24 (Trig/Chol/HDL) [phone] Cholesterol 155 mg/dL N 25 HDL Cholesterol 37.9 mg/dL N 26 LDL Cholesterol 81 mg/dL N 27 Laboratory test 06/09/2016 [facility] PSA Screening 0.452 N 0-4.000 28 finding [phone] ng/mL CBC Auto Diff 05/03/2016 [facility] White Blood 13.8 High 3.5-10.8 [phone] Count 10^3/uL Red Blood Count 5.73 10^6/uL High 4.0-5.4 [...] Nucleated Red Blood Cells % 0 N Comp Metabolic Panel 05/03/2016 [facility] Sodium 137 mmol/L N 133-145 [phone] Potassium 3.9 mmol/L N 3.5-5.0 Chloride 102 [...] 77.1 N >60 Egfr 99.1 N >60 29 Laboratory test 05/03/2016 [facility] Lipase 15 U/L N 11.0-82.0 finding [phone] C Reactive Protein 6.44 mg/L High < 5.00 30 Troponin-I (TnI) 0.01 ng/mL N <0.04 31 Inr/Protime 05/03/2016 [facility] Inr 0.94 N 0.89- 1.11 [phone] Laboratory test 05/03/2016 [facility] Lactic Acid 1.4 mmol/L N 0.5-2.0 32 finding [phone] Hemoglobin A1c 5.7 % N Less than 6.0 33 Laboratory test 03/17/2016 [facility] Strep Screen NEG Neg finding (607)- - Laboratory test 05/12/2015 [facility] Stool Negative N Negative 34 finding [phone] Helicobacter pylori Ag Laboratory test 09/30/2012 [facility] PSA Diagnostic 0.3 ng/mL 0-4.0 35 finding [phone] Testosterone Free 09/30/2012 [facility] Free Testosterone 9.5 ng/dL 9-30 36 & Total [phone] ng/dl Testosterone 249 ng/dL 240-950 37 Laboratory test 09/30/2012 [facility] TSH (Thyroid 1.64 0.34-5.60 finding [phone] Stimulating miu/mL Horm) Laboratory test 08/23/2012 In House Lab Strep Screen NEG Neg finding (607)- - Hemoccult 12/21/2011 [facility] House Lab Stool-Occult NEG Neg (607)- - Blood #1 Stool-Occult Blood #2 NEG12/17/2011 Neg Stool-Occult Blood #3 NEG 12/18/2011 Neg Lipid Profile 12/14/2011 [facility] Triglyceride 289 mg/dL High 40-200 (Trig/Chol/HDL) [phone] Cholesterol 186 mg/dL Less Than 200 38 High Density Lipoprotein 32 mg/dL Low 40-60 39 Cholesterol/HDL Ratio 5.81 AVERAGE High 1-4.97 Low Density Lipoprotein 96 mg/dL Less Than 100 40 Vitamin D, 25 12/14/2011 [facility] 25-Hydroxy Vitamin <4.0 ng/mL () Hydroxy [phone] D2 25-Hydroxy Vitamin D3 22 ng/mL () 25-Hydroxy Vitamin D Total 22 ng/mL Abnormal () 41 Urine DIP 12/13/2011 In House Lab Leukocytes NEG Neg (607)- - Urine Nitrites NEG Neg Urine pH 5 5-6 Total Protein, Urine NEG Neg Urine Glucose NORM Norm Urine Ketones NEG Neg Urobilinogen NORM Norm Urine Bilirubin NEG Neg Urine Blood NEG Neg Specific [place] NA Low 1.01-1.02 Egfr (Calculated) 12/05/2011 [facility] Estimated GFR ( CALCULATED) [phone] Egfr >60 42 Egfr, -Yemeni >60 43 CBC 12/05/2011 [facility] WBC 7.8 x10E3/uL 4.3-10.9 [phone] RBC 5.29 x10E6/uL 4.70-6.20 Hemoglobin 14.8 g/dL [...] Absolute 0.0 x10E3/uL 0.0-0.2 Laboratory test 12/05/2011 [facility] TSH 1.660 0.350- 5.500 finding [phone] (Thyrotropin) uIU/ml Comprehensive 12/05/2011 [facility] Glucose 121 High 70- 100 Metabolic [phone] mg/dL BUN 14 mg/dL 5-21 Creatinine, Serum 0.94 mg/dL 0.60-1.30 Sodium 139 mmol/L 136-146 Potassium 3.9 mmol/L 3.5-5.3 Chloride 106 mmol/L 98-110 Carbon Dioxide 23 mmol/L 20-32 Albumin 4.6 g/dL 3.5-4.7 Protein, Total 7.1 g/dL 6.4-8.3 Calcium 9.4 mg/dL 8.4-10.4 Alkaline Phosphatase 84 U/L 10-118 Sgot (Ast) 23 U/L 3-40 SGPT (Alt) 26 U/L 7-50 Bilirubin, Total 0.50 mg/dL 0.30-1.20 Hemoglobin A1c 12/05/2011 [facility] Hemoglobin A1c 5.6 % 44, 45 [phone] Estimated Avg Glucose 114.0 mg/dL Flu Test A, B, Or A & B,Binaxn 03/13/2011 [facility] House [facility] Influenza A Antigen neg (607)- - Influenza B Antigen neg CBC Auto Diff 12/03/2010 [facility] White Blood 8.2 CUMM 4.8-10.8 [phone] Count Red Cell Count 5.44 CUMM 4.6-6.2 [...] Basophils 0 0-0.2 Comp Metabolic Panel 12/03/2010 [facility] Sodium 138 mmol/L 135-145 [phone] Potassium 3.7 mmol/L 3.5-5.0 Chloride 104 mmol/L 101-111 Co2 (Carbon Dioxide) 25.0 mmol/L 22-32 Anion Gap 9.0 mmol/L 2-11 46 Glucose 117 mg/dL High 70-100 BUN 9 mg/dL 6-24 Creatinine 1.20 mg/dL 0.50-1.40 One Over Creatinine 0.80 BUN/Creatinine Ratio 7.5 Low 8-20 Calcium 9.1 mg/dL 8.1-9.9 Total Protein 7.5 GM/DL 6.2-8.1 Albumin 4.1 GM/DL 3.6-5.4 Globulin 3.4 GM/DL 2-4 Albumin/Globulin Ratio 1.2 1-3 Bilirubin Total 0.6 mg/dL 0.4-1.5 47 Alkaline Phosphatase 76 U/L 39-117 Alt (SGPT) 27 U/L 17-63 Ast (Sgot) 23 U/L 12-42 eGFR Non- 66.1 > 60 eGFR 85.0 > 60 48 Urinalysis 12/03/2010 [facility] Ua Color YELLOW Yellow W/Microscopic [phone] Appearance-Urine CLEAR Clear Specific [place]-Ur 1.017 1.010-1.030 Esterase-Urine NEGATIVE Negative Nitrite NEGATIVE Negative [id number] NEGATIVE Negative Protein-Urine NEGATIVE Negative PH-Urine 7.5 [...] NEG Neg Urine Blood NEG Neg Specific [place] N/A Low 1.01-1.02 Urine DIP 05/23/2010 [facility] House Lab Leukocytes neg Neg (607)- - Urine Nitrites neg Neg Urine pH 5 5-6 Total Protein, Urine trace Neg Urine Glucose norm Norm Urine Ketones neg Neg Urobilinogen norm Norm Urine Bilirubin neg Neg Urine Blood neg Neg Specific [place] n/a Low 1.01-1.02 Urine DIP 07/17/2009 In House Lab Leukocytes NEG Neg (607)- - Urine Nitrites NEG Neg Urine pH 5 5-6 Total Protein, Urine NEG Neg Urine Glucose NORM Norm Urine Ketones NEG Neg Urobilinogen NORM Norm Urine Bilirubin NEG Neg Urine Blood NEG Neg Specific [place] N/A Low 1.01-1.02 Comp Metabolic 07/17/2009 [facility] Sodium 138 mmol/ L 135-145 49 Panel [phone] Potassium 4.0 mmol/L 3.5-5.0 Chloride 107 mmol/L 101-111 Co2 (Carbon Dioxide) 24.0 mmol/L 22-32 Anion Gap 7.0 mmol/L 2-11 50 Glucose 100 mg/dL 70-100 51 BUN 9 mg/dL 6-24 Creatinine 0.90 mg/dL 0.50-1.40 One Over Creatinine 1.10 BUN/Creatinine Ratio 10.0 8-20 Calcium 9.3 mg/dL 8.1-9.9 52 Total Protein 6.6 GM/DL 6.2-8.1 Albumin 4.0 GM/DL 3.6-5.4 Globulin 2.6 GM/DL 2-4 Albumin/Globulin Ratio 1.5 1-3 Bilirubin Total 0.6 mg/dL 0.4-1.5 53 Alkaline Phosphatase 80 U/L 39-117 Alt (SGPT) 35 U/L 17-63 Ast (Sgot) 26 U/L 12-42 eGFR Non- 98.8 > 60 eGFR 119.6 > 60 54 Liver Function 07/17/2009 [facility] Bilirubin Direct 0.1 mg/dL 0.1-0.5 Panel [phone] Indirect Bilirubin 0.5 mg/dL 0.1-0.75 Laboratory test finding 07/17/2009 [facility] Lipase 27 U/L 22-51 [phone] Amylase 18 U/L Low 30-125 CBC With 07/17/2009 [facility] White Blood 8.3 CUMM 4.8-10.8 Electronic Diff [phone] Count Red Cell Count 5.53 CUMM 4.6-6.2 [...] nl Neg Urine Blood nl Neg Specific [place] n/a Low 1.01-1.02 CBC With 01/01/2009 [facility] White Blood 6.8 CUMM 4.8-10.8 Electronic Diff [phone] Count Red Cell Count 5.46 CUMM 4.6-6.2 [...] Basophils 0 0-0.2 Comp Metabolic Panel 01/01/2009 [facility] Sodium 139 mmol/L 135-145 [phone] Potassium 4.1 mmol/L 3.5-5.0 Chloride 104 mmol/L 101-111 Co2 (Carbon Dioxide) 28.0 mmol/L 22-32 Anion Gap 7.0 mmol/L 2-11 55 Glucose 96 mg/dL 70-100 56 BUN 11 mg/dL 6-24 Creatinine 1.20 mg/dL 0.50-1.40 One Over Creatinine 0.80 BUN/Creatinine Ratio 9.2 8-20 Calcium 9.2 mg/dL 8.1-9.9 57 Total Protein 7.1 GM/DL 6.2-8.1 Albumin 4.3 GM/DL 3.6-5.4 Globulin 2.8 GM/DL 2-4 Albumin/Globulin Ratio 1.5 1-3 Bilirubin Total 1.1 mg/dL 0.4-1.5 58 Alkaline Phosphatase 83 U/L 39-117 Alt (SGPT) 29 U/L 17-63 Ast (Sgot) 22 U/L 12-42 eGFR Non- 70.9 > 60 eGFR 85.8 > 60 59 Yoni Hope 01/01/2009 [facility] Ebv Vca Positive Negative Comprehensive [phone] Igg Ebv Vca Igm Negative Negative Ebna Positive Negative Ebv Interpretation SEE BELOW () 60 Laboratory test 01/01/2009 [facility] TSH 2.63 MIU/ ML 0.34-5.60 finding [phone] Lyme Western 01/01/2009 [facility] Lyme Disease Negative Negative 61 Blot Specialty [phone] Igg Western Blot Lyme Disease Igm Western Blot Negative Negative 62 Lyme Disease Interpretation . () 63 Laboratory test 01/01/2009 [facility] Mumps Igg Negative Negative 64 finding [phone] Rubella Igg Positive Positive 65 Rubeola Igg AB Positive Negative 66 Vitamin D.25 01/01/2009 [facility] 25-Hydroxy Vitamin <4.0 ng/mL () Hydroxy [phone] D2 25-Hydroxy Vitamin D3 26 ng/mL () 25-Hydroxy Vitamin D Total 26 ng/mL () 67 1 ADDITIONAL INFORMATION Testing performed by Liquid Chromatography-Tandem Mass Spectrometry (LC-MS/MS). This test was developed and its performance characteristics determined by [facility] in a manner consistent with CLIA requirements. This test has not been cleared or approved by the U.S. Food and Drug Administration. 2 ADDITIONAL INFORMATION Testing performed by Equilibrium Dialysis. This test was developed and its performance characteristics determined by [facility] in a manner consistent with CLIA requirements. This test has not been cleared or approved by the U.S. Food and Drug Administration. 3 ADDITIONAL INFORMATION Testing performed by Differential Precipitation. This test was developed and its performance characteristics determined by [facility] in a manner consistent with CLIA requirements. This test has not been cleared or approved by the U.S. Food and Drug Administration. Test Performed by: [facility] [employer] [facility] [address] [place] [address] 4 [id number] ADDITIONAL INFORMATION Testing performed by Liquid Chromatography-Tandem Mass Spectrometry (LC-MS/MS). This test was developed and its performance characteristics determined by [facility] in a manner consistent with CLIA requirements. This test has not been cleared or approved by the U.S. Food and Drug Administration. 10 ADDITIONAL INFORMATION Testing performed by [facility]. This test was developed and its performance characteristics determined by [facility] in a manner consistent with CLIA requirements. This test has not been cleared or approved by the U.S. Food and Drug Administration. 11 ADDITIONAL INFORMATION Testing performed by [facility]. This test was developed and its performance characteristics determined by [facility] in a manner consistent with CLIA requirements. This test has not been cleared or approved by the U.S. Food and Drug Administration. Test Performed by: [facility] [employer] - [address] [address] 12 [id number] 13 ADDITIONAL INFORMATION Testing performed by Liquid Chromatography-Tandem Mass Spectrometry (LC-MS/MS). This test was developed and its performance characteristics determined by [facility] in a manner consistent with CLIA requirements. This test has not been cleared or approved by the U.S. Food and Drug Administration. 14 ADDITIONAL INFORMATION Testing performed by [facility]. This test was developed and its performance characteristics determined by [facility] in a manner consistent with CLIA requirements. This test has not been cleared or approved by the U.S. Food and Drug Administration. 15 ADDITIONAL INFORMATION Testing performed by Differential Precipitation. This test was developed and its performance characteristics determined by [facility] in a manner consistent with CLIA requirements. This test has not been cleared or approved by the U.S. Food and Drug Administration. 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 diff PCR, Stool Culture, Fecal Lactoferr, Occult Bl, Scn, O P: Carissa/Luna COMMENTS: [id number] Procedure Result Reported Site Stool Culture Final [...] CONTINUED ON NEXT PAGE DEPARTMENT OF PATHOLOGY, [address] [place] [address] Angel Walton M.D. Director [facility] # [id number] Patient: HARRY CANELA Marisela [id number] (Continued) Specimen: [id number] Collected: 07/31/17-1499 Received: 07/31/17 (Continued) Procedure Result Reported Site Shiga Toxin [...] is requested. Contact the Microbiology Department at [phone]. TEST LIMITATIONS: As with all diagnostic procedures, the results obtained should be used in conjunction with other clinical information available the physician, including confirmation CONTINUED ON NEXT PAGE DEPARTMENT OF PATHOLOGY, [address] [place] [address] Angel Walton M.D. Director [facility] # [id number] Patient: HARRY CANELA [id number] (Continued) Specimen: [id number] Collected: 07/31/17-1499 Received: 07/31/17-1534 (Continued) Procedure Result Reported Site O P: [...] . END OF REPORT DEPARTMENT OF PATHOLOGY, [address] [place] [address] Angel Walton M.D. Director [facility] # [id number] 19 Because ethnic data is not always readily [...] 15-29 5 Kidney failure <15 (or dialysis) 20 Presumptive Positive Presumptive positive results are unconfirmed. 21 Presumptive Positive Presumptive positive results are unconfirmed. 22 The urine specimen was tested at the listed cutoffs: Drug class test level (ng/mL) Amphetamines 500 Barbiturates 200 Benzodiazepine metabolites 200 Cocaine metabolites 150 Cannabinoids 50 Opiates 300 Pcp 25 Specimen was received without chain of custody. Results should be used for medical purposes only. 23 SEE RESULT BELOW Name: ROLAHARRY : [address]: Lyla Stringer MD Acct: [id number] Unit: [id number] AGE: 50 Location: [facility] Re06/14/16 SEX: M Status: REG REF SPEC: [id number] MATA: 06/14/[address] [facility] [address]: Lyla Stringer MD REQ: [id number] RECD: 06/15/16 STATUS: COMP _ SOURCE: STOOL SPDESC: ORDERED: Hemoccult, Stool Culture, Fecal Lactoferr, O P: Giar/Crypt COMMENTS: C. Difficile toxin testing is not performed on formed stool specimens. Test of cure on positive patients is not recommended. Verbal to PADMINICAITLIN FRANCISCO by [id number] at 1125 on 06/15/16. Procedure Result Reported [...] performed at Main Lab DEPARTMENT OF PATHOLOGY, [address] [place] [address] Angel Walton M.D. Director [facility] # [id number] Patient: HARRY CANELA Marisela [id number] (Continued) Specimen: [id number] Collected: 06/14/16 Received: 06/15/16 (Continued) Procedure Result Reported Site Shiga Toxin 1 2 Final (continued) 06/16/16- 1031 Immunochromatographic Assay Fecal Lactoferrin (Stool WBC) Final [...] Negative O P: Giardia/Cryptospor Screen Final 06/16/16- 1032 ML Organism 1 Neg Cryptosporidium/Giardia Giardia and cryptosporidium antigen testing performed by enzyme immunoassay. If patient is immunocompromised or has traveled to or is from a developing country, a full ova and parasite exam with microscopic (OPMIC) is recommended. All samples will be held one month in case full ova and parasite testing is requested. Contact the Microbiology Department at [phone]. TEST LIMITATIONS: As with all diagnostic procedures, [...] ON NEXT PAGE * ML=Testing performed at [facility] Lab DEPARTMENT OF PATHOLOGY, [address] [place] [address] Angel Walton M.D. Director [facility] # [id number] Patient: ROLAHARRY Antonio [id number] (Continued) Specimen: [id number] Collected: 06/14/16 Received: 06/15/16-1004 (Continued) Procedure Result Reported Site O P: Giardia/Cryptospor Screen Final (continued) 06/16/16- 1031 it is recommended that three specimens be [...] not recommended. * ML - MAIN LAB ([facility]) . END OF REPORT * ML=Testing performed at Main Lab DEPARTMENT OF PATHOLOGY, [address] [place] [address] Angel Walton M.D. Director [facility] # [id number] 24 Desirable <150 Borderline high 150-199 High 200-499 Very High >500 25 Desirable <200 Borderline high 200-239 High >239 26 Low <40 Desirable: 40-60 High: >60 27 Desirable: <100 mg/dL Near Optimal: 100-129 mg/dL Borderline High: 130-159 mg/dL High: 160-189 mg/dL Very High: >189 mg/dL 28 Serum levels of PSA measured using the [employer] DXI Hybritech immunoassay should not be interpreted [...] methods or kits cannot be used interchangeably. 29 Because ethnic data is not always readily [...] 15-29 5 Kidney failure <15 (or dialysis) 30 Acute inflammation: >10.00 31 99th percentile=0.04 ng/mL Troponin results at [facility] and [facility] are not interchangeable. 32 [facility] Severe Sepsis and Septic Shock Management Bundle Measure requires all lactic acids initially measuring >2.0 mmol/L be repeated. 33 Therapeutic target for the treatment of diabetes Mellitus patients is <7% HBA1C, and in selective patients <6.0%.Please refer to [place] [employer] Diabetic care guidelines for further information. 34 Test Performed by: [address] [address] Youth Manager: Ignacio Preston II, M.D., Ph.D. 35 Serum levels of PSA measured using the [employer] DXI Hybritech immunoassay should not be interpreted [...] methods or kits cannot be used interchangeably. 36 Testing performed by [facility]. 37 Testing performed by Liquid Chromatography-Tandem Mass Spectrometry (LC-MS/MS). Test Performed by: [address] [address] Youth Manager: Phillip Sawyer III, M.D. 38 CHOLESTEROL INTERPRETATION: Desirable: Less than 200 MG/DL Borderline-High Risk: 200-239 MG/DL High-Risk: 240 MG/DL and over 39 HDL INTERPRETATION: Undesirable: High Risk: Less than 40 MG/DL Desirable: Low Risk: Greater than 60 MG/DL 40 LDL INTERPRETATION: Low Risk Optimal Level: LDL Less than 100 MG/DL Near or Above Optimal: LDL 100-129 MG/DL Borderline High Risk: LDL 130-159 MG/DL High Risk: LDL 160-189 MG/DL Very High Risk: LDL Greater than 189 MG/DL 41 Interpretation: 10-24 (mild to moderate deficiency) -- REFERENCE VALUE -- 25-HYDROXY D TOTAL (D2+D3) Optimum levels in the normal population are 25-80 Test Performed by: [address] [address] Youth Manager: Phillip Sawyer III, M.D. 42 >59 mL/min/1.73m2 43 >59 mL/min/1.73m2 Note: Persistent reduction for 3 months or more in an eGFR <60 mL/min/1.73m2 defines CKD. Patients with eGFR values >=60 mL/min/1.73m2 may also have CKD if evidence of persistent proteinuria is present. Additional information may be found at www.kidney.org/professionals/kdoqi. 44 Add to specimen colelcted 12-05-11 Add to [id number] HGBA1C (%) GLUCOSE CONTROL <6 NORMAL >=6.5 SUGGESTIVE OF DIABETES 46 Anion gap measurement may be of limited value in the presence of any alkalosis, especially in a combined acid base disorder. . 47 A metabolite of Naproxen, O-desmethylnaproxen, has been shown to interfere with the [place] method for measuring total bilirubin. Samples from patients who have taken Naproxen have shown spurious elevation in total bilirubin levels. 48 Because ethnic data is not always readily [...] 15-29 5 Kidney failure <15 (or dialysis) 49 CALL RESULTS TO [phone] ANSWERING SERVICE WILL ANSWER WANTS VERBAL RESULTS 50 Anion gap measurement may be of limited value in the presence of any alkalosis, especially in a combined acid base disorder. . 51 Note change in reference range as of 01/02/08. The change was based on recommendations from the [place] [employer]. 52 Please note change in reference range effective 07 . 53 A metabolite of Naproxen, O-desmethylnaproxen, has been shown to interfere with the [place] method for measuring total bilirubin. Samples from patients who have taken Naproxen have shown spurious elevation in total bilirubin levels. 54 Because ethnic data is not always readily [...] 15-29 5 Kidney failure <15 (or dialysis) 55 Anion gap measurement may be of limited value in the presence of any alkalosis, especially in a combined acid base disorder. . 56 Note change in reference range as of 01/02/08. The change was based on recommendations from the [place] [employer]. 57 Please note change in reference range effective 07 . 58 A metabolite of Naproxen, O-desmethylnaproxen, has been shown to interfere with the [place] method for measuring total bilirubin. Samples from patients who have taken Naproxen have shown spurious elevation in total bilirubin levels. 59 Because ethnic data is not always readily [...] 15-29 5 Kidney failure <15 (or dialysis) 60 RESULT: Results suggest past infection In most populations, at least 90% of the adult population will have been infected with EBV sometime in the past and therefore, will be positive for anti-VCA/IgG and anti-EBNA. Antibodies to EBNA develop 6-8 weeks after primary infection and remain present for life. Presence of VCA/IgM antibodies indicates recent primary infection with EBV. Test Performed by: [facility] Dpt of Lab Med and Pathology [address] [place] [id number] Youth Manager: Phillip Sawyer III, M.D. 61 IgG band(s) ([place]): None Detected 62 IgM band(s) ([place]): p23 63 Specific serologic response to B. burgdorferi is [...] to be considered positive. Test Performed by: [facility] Path[facility] [address] [place] [address] Youth Manager: Phillip Sawyer III, M.D. 64 Test Performed by: [facility] Path[facility] [address] [place] [address] Youth Manager: Phillip Sawyer III, M.D. 65 Test Performed by: [facility] [address] [place] [address] Youth Manager: Phillip Sawyer III, M.D. 66 Test Performed by: [facility] Med [facility] Pathology [address] [place] [address] Youth Manager: Phillip Sawyer III, M.D. 67 -- REFERENCE VALUE -- 25-HYDROXY D TOTAL (D2+D3) Optimum levels in the normal population are 25-80 Test Performed by: [facility] D[facility] of Lab Med and Pathology [address] [place] [address] Youth Manager: Phillip Sawyer III, M.D. Procedures Date Code Description Status 09/11/2016 [id number] Colonoscopy Completed 09/05/2012 95797 EKG, at Least 12 Leads w/Interpretation and Report Completed 01/01/2009 37575 EKG, at Least 12 Leads w/Interpretation and Report Completed Encounters Type Date Location Provider Dx Diagnosis Office Visit 05/30/2018 [facility] Emi Hall NP B37.9 Candidiasis, 10:30a unspecified F52.21 Male erectile disorder R21 Rash [...] Office Lorena M79.672 Pain in left foot LEONORA Izaguirre Office Visit 08/29/2017 10:45a Main Office Lyla Hidalgo9 Infectious Siomara, gastroenteritis and Claudia, R.D. 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 Office Visit 01/29/2017 11:15a Main Office Parminder Sprague N20.0 Calculus of kidney Storm, IC [employer]C S46.812A Strain of musc/fasc/tend at shldr/up arm, left arm, init Office Visit 08/11/2016 12:00p Main Office Kristie Severino, IC [employer] R06.2 Wheezing R10.9 Unspecified abdominal pain K64.8 Other hemorrhoids M54.5 Low back pain Office Visit 06/09/2016 10:30a Main Office Lyla Stringer, Z00.00 Encntr for Claudia, R.D. general adult medical exam w/o abnormal findings A09 Infectious gastroenteritis and colitis, unspecified Office Visit 03/17/2016 11:00a Main Office Melecio Tai J02.9 Acute pharyngitis, III, [employer] unspecified Office Visit 03/08/2016 8:45a Main Office Kristie Severino, J20.9 Acute bronchitis, [employer] unspecified Office Visit 03/02/2016 11:45a Main Office Jenny Antonio01.90 Acute sinusitisWalkergenClaudia unspecified J20.9 Acute bronchitis, unspecified Office Visit 11/30/2015 11:00a Main Office Melecio Tai J45.909 Unspecified asthma, III, [employer] uncomplicated Office Visit 11/09/2015 2:15p Main Office Melecio Tai J45.909 Unspecified asthma, III, [employer] uncomplicated Office Visit 06/14/2015 9:45a Main Office Phan Antonio45.901 Unspecified asthma MD Tanya with (acute) exacerbation Office Visit 05/06/2015 10:30a Main Office Phan K59.00 Constipation, MD Tanya unspecified Office Visit 03/15/2015 3:30p Main Office Lyla Stringer, M70.10 Bursitis , Claudia, R.D. unspecified hand Office Visit 03/09/2015 3:00p Main Office Kristie Severino, I10 Essential ( primary) [employer] hypertension Office Visit 11/26/2014 10:30a Main Office Lyla Stringer, 401.9 Hypertension Unspec M.D., R.D. 278.00 Obesity Unspec 682.2 Cellulitis & Abscess Trunk Office Visit 11/18/2014 11:15a Main Office Lyla Stringer, 682.2 Cellulitis & M.D., R.D. Abscess Trunk 401.9 Hypertension Unspec 278.00 Obesity Unspec Office Visit 10/01/2014 11:15a Main Office Parminder Sprague 796.2 Blood Pressure Storm, [employer] Reading Elevated W/O Hypertension Office Visit 02/10/2014 8:45a Main Office Kristie Severino, 786.2 Cough [employer] Office Visit 02/04/2014 9:00a Main Office Kristie Severino, 493.90 Asthma Unspec W/O [employer] Status Asthmaticus 401.9 Hypertension Unspec Office Visit 10/04/2013 11:00a Main Office Lyla Stringer, 959.5 Injury Finger Other M.D., R.D. & Unspec Office Visit 08/13/2013 9:00a Main Office Kristie Severino, 466.0 Bronchitis Acute [employer] Office Visit 09/30/2012 11:45a Main Office Lyla Stringer, 796.2 Blood Pressure M.D., R.D. Reading Elevated W/O Hypertension 302.72 Erectile Dysfunction 278.02 Overweight Office Visit 09/05/2012 10:45a Main Office Lyla Stringer, 796.2 Blood Pressure M.D., R.D. Reading Elevated W/O Hypertension 784.49 Voice Disturbance Other Office Visit 08/23/2012 11:15a Main Office Claire Joseph, 462 Pharyngitis Acute M.D. 796.2 Blood Pressure Reading Elevated W/O Hypertension Office Visit 03/13/2012 3:30p Main Office Kristie Mere, IC [employer]C 723.1 Cervicalgia 726.19 Shoulder Disorders Other Spec Office Visit 02/15/2012 2:45p Main Office Claire Santillan 569.49 Rectum & Anus Kobi Joseph. Disorder Other 789.04 Pain Abdominal Left Lower Quadrant 455.0 Hemorrhoids Internal W/O Complication Office Visit 12/13/2011 2:15p Main Office Kristie Severino, V70.0 Examination General [employer] Medical Routine AT Health Care Facility 780.79 Malaise And Fatigue Other 719.68 Joint Symptoms Other Other Spec Sites V76.51 Special Screening For Malignant Neoplasms Colon Office Visit 12/05/2011 4:15p Main Office Kristie Severino, 780.79 Malaise And [employer] Fatigue Other Office Visit 08/24/2011 2:00p Main Office Parminder Schmidt, 944.05 Burn Hand Palm [employer] Unspec Deg 944.05 Burn Hand Palm Unspec Deg Office Visit 05/24/2011 9:30a Main Office Kristie Severino, 238.2 Neoplasm Uncertain [employer] Behavior Skin 483.8 Pneumonia Due To Other Spec Organisms Office Visit 03/13/2011 10:15a Main Office Parminder Schmidt, 466.0 Bronchitis Acute [employer] 466.0 Bronchitis Acute Office Visit 07/30/2010 8:00a Main Office Parminder Sprague 558.9 Gastroenteritis & Storm, IC [employer] Colitis Noninfectious Other Office Visit 05/23/2010 9:00a Main Office Laura 535.50 Gastritis & Don, 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 Office Visit 12/31/2009 9:30a Main Office Lyla 238.2 Neoplasm Uncertain Siomara, Behavior Skin Claudia, R.D. 309.9 Adjustment Reaction Unspec Office Visit 07/17/2009 11:00a Main Office Lyla Stringer, 789.9 Abdomen & Pelvis Claudia, R.D. Symptoms Other Office Visit 06/11/2009 2:45p Main Office Lyla Stringer, 309.0 Adjustment Disorder Claudia, R.D. With Depression Office Visit 05/26/2009 2:45p Main Office Parminder Sprague 558.9 Gastroenteritis & Storm, [employer] Colitis Noninfectious Other Office Visit 01/01/2009 8:00a Main Office Neywntpetr Sprague 780.79 Malaise And Fatigue Storm, IC [employer] Other 786.50 Pain Chest Unspec 826.0 FX Phalanges Of Foot One Or More Closed V73.2 Screening Examination Measles Office Visit 10/27/2008 11:45a Main Office Parminder Schmidt, 300.00 Anxiety State [employer] Unspec 477.9 Rhinitis Allergic Cause Unspec Office Visit 09/22/2008 10:15a Main Office Parminder Schmidt, 466.0 Bronchitis Acute [employer] Plan of Treatment Future Appointment(s):07/08/2018 10:30 am - Lyla Stringer M.D., R.D. at Main Nmxbwy0406/05/2018 - Jose Sky M.D.J45.909 Unspecified asthma, uncomplicatedComments:Reviewed goals of asthma management and indications for daily inhaled corticosteroid.In his case he does need an inhaled daily corticosteroid through most of the summer but not in the winter.Insurance will cover Symbicort so we discussed using it regularly as soon as his asthma starts bothering him inthe spring.Once winter comes he can stop and resume albuterol when necessaryFollow up:Schedule CPE with MM.Recommendations:In the summer when you are needing albuterol more than a couple of times a week then start the symbicourt 1 puff twice a day until the season changes. In the winter when you only need albuterol rarely,when you get sick, then you can stop the symbicourt. Just albuterol as needed.F52.21 Male erectile disorderComments:Midmorning testosterone level was low.We will need to repeat with 8 AM blood work
[2018-07-27] MEDS ORDERED: Aspirin 81 mg CHEW TAB* 81 MG TAB.CHEW PO ONE (11:45)
[2018-07-27] MEDS ORDERED: NS 0.9% 1000 ML** 1,000 ML IV ONE (11:45)
[2018-07-27] MEDS ORDERED: Metoprolol Tartrate IV* 1 MG/ML 5 ML VIAL IV ONE (11:45)
--- NOTE | 2018-07-27 11:46 | ED ---
Shortness of Breath - HPI Summary HPI Summary: This patient is a 52 year old M presenting to [facility] accompanied by family with a chief complaint of SOB that began upon waking. The patient rates the pain 0/ 10 in severity. Symptoms aggravated by nothing. Symptoms alleviated by nothing. Patient reports dizziness, nausea, elevated BP, and chest tingling. Patient denies chest pain and cough. Patient states he is waiting for a catheterization procedure, and is waiting to see if he is allergic to the dyes. Patient states a recent stress test was not normal, and was told the results on 07/22/2018. 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 - History of Current Complaint Chief Complaint: EDShortnessOfBreath Time Seen by Provider: 07/27/18 11:38 Hx Obtained From: Patient Onset/Duration: Sudden Onset, Lasting Hours, Still Present Timing: Constant Current Severity: Mild Dyspnea At: Rest Aggrevating Factors: Nothing Alleviating Factors: Nothing Associated Signs & Symptoms: Dizzy - Allergy/Home Medications Allergies/Adverse Reactions: Allergies Allergy/AdvReac Type Severity Reaction Status Date / Time Iodinated Contrast- Oral and Allergy Severe Nausea And Verified 07/27/18 11:48 IV Dye Vomiting hydromorphone [From Dilaudid] Allergy Altered Verified 07/27/18 11:48 Mental Status ibuprofen Allergy Rash Verified 07/27/18 11:48 ketamine Allergy Anaphylatic Verified 07/27/18 11:48 Shock meperidine [From Demerol] Allergy Altered Verified 07/27/18 11:48 Mental Status adhesives AdvReac Intermediate Rash Uncoded 01/27/17 00:14 Home Medications: Home Medications Cimetidine TAB (NF) [Tagamet (NF)] 1 tab PO DAILY 07/27/18 [History Confirmed ] Losartan Potassium 1 tab PO DAILY 07/27/18 [History Confirmed 07/27/18] PMH/Surg Hx/FS Hx/Imm Hx Previously Healthy: No Endocrine/Hematology History: Denies: Hx Diabetes Cardiovascular History: Reports: Hx Hypertension - has not been taking BP MEDS THAT WERE PRESCRIBED Respiratory History: Reports: Hx Asthma - FLARES UP WITH SEASON CHANGES, Hx Pneumonia, Hx Seasonal Allergies, Hx Sleep Apnea GI History: Reports: Hx Diverticulosis, Hx Ileostomy Denies: Other GI Disorders History: Reports: Hx Kidney Stones - IN THE PAST Denies: Hx Renal Disease Musculoskeletal History: Reports: Hx Arthritis - left hand, Hx Orthopedic Injury - left thumb Denies: Other Musculoskeletal History Sensory History: Denies: Hx Contacts or Glasses, Hx Hearing Aid Opthamlomology History: Denies: Hx Contacts or Glasses Psychiatric History: Reports: Hx Anxiety - TENDS TO BE HYPER & ANXIOUS - Surgical History Surgery Procedure, Year, and Place: Left eye (Raul's Transplant);. Appendectomy. Colostomy. Colostomy Reversal. Hernia Surgery. Left ORIF Knee. Left eye-Cornea surgery-Lens implant--[facility] [place]. Kidney [id number] Hx Anesthesia Reactions: No Infectious Disease History: No Infectious Disease History: Denies: Traveled Outside the [place] in Last 30 Days - Family History Known Family History: Negative: Cardiac Disease, Diabetes - Social History Occupation: Unemployed Lives: With Family Alcohol Use: Weekly Alcohol Amount: 5 DRINKS A MONTH Hx Substance Use: Yes Substance Use Type: Reports: Marijuana Substance Use Comment - Amount & Last Used: MJ EVERY DAY Hx Tobacco Use: Yes Smoking Status (MU): Former Smoker Amount Used/How Often: 1 PK EVERY 2 DAYS X 20 YRS Review of Systems Positive: Other - Positive chest tingling and elevated BP. Negative: Chest Pain Negative: Cough Positive: Nausea Neurological: Other - Positive dizziness All Other Systems Reviewed And Are Negative: Yes Physical Exam - Summary Physical Exam Summary: Appearance: Well appearing, no pain distress Skin: warm, dry, reflects adequate perfusion Head/face: normal Eyes: EOMI, ANGELINA ENT: mucous membranes moist Neck: supple, non-tender Respiratory: CTA, breath sounds present Cardiovascular: RRR, pulses symmetrical Abdomen: non-tender, soft Bowel Sounds: present Musculoskeletal: normal, strength/ROM intact Neuro: normal, sensory motor intact, A&Ox3 Triage Information Reviewed: Yes Vital Signs On Initial Exam: Initial Vitals Temp Pulse Resp BP Pulse Ox 97.3 F 66 22 150/90 100 07/27/18 11:14 07/27/18 11:14 07/27/18 11:14 07/27/18 11:14 07/27/18 11:14 Vital Signs Reviewed: Yes Diagnostics - Vital Signs Vital Signs Temp Pulse Resp BP Pulse Ox 07/27/18 11:14 97.3 F 66 22 150/90 100 - Laboratory Result Diagrams: 07/27/18 12:18 07/27/18 12:18 Lab Statement: Any lab studies that have been ordered have been reviewed, and results considered in the medical decision making process. - Radiology CXR Radiology Interpretation Completed By: ED Physician Summary of Radiographic Findings: CXR reveals, per ED physician, no acute findings. - EKG 1159 Cardiac Rate: NL EKG Rhythm: Sinus Rhythm - [address] Segment: Normal Summary of EKG Findings: An EKG taken at 1159 reveals sinus bradycardia at 58 BPM with nml axis, nml interval, and nml ST. Re-Evaluation - Re-Evaluation First Eval Re-Evaluation Time: 13:50 Change: Improved Comment: Feels better after fluids. No longer fatigued. Not short of breath when he walks. Course/Dx - Course Course Of Treatment: Nurse's notes reviewed. Patient with generalized malaise and fatigue today and some associated dyspnea. No chest pain with normal EKG and normal troponin. Has known recent abnormal stress test and has pending upcoming catheterization. Improved with hydration here. Walked about the ER without chest pain or dyspnea. D-dimer is not elevated either. Discharged to follow up closely with primary care physician after offered observation which patient refused. 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 Return with chest pain, difficulty breathing, worse, new symptoms or other concerns as discussed. you may call me if you have any problems here in the ER. Take your medication as prescribed, take a baby aspirin every day. - Billing Disposition and Condition Condition: IMPROVED Disposition: Home - Attestation Statements Document Initiated by Scribe: Yes Documenting Scribe: Skye Farfan Provider For Whom Chintan is Documenting (Include Credential): Dr. King Welch MD Scribe Attestation: I, Skye Farfan, scribed for Dr. King Welch MD on 07/27/18 at 1608. Scribe Documentation Reviewed: Yes Provider Attestation: The documentation as recorded by the scribe, Skye Farfan accurately reflects the service I personally performed and the decisions made by me, Dr. King Welch MD Status of Scribe Document: Viewed
[2018-07-27 12:38] LABS: ABS Basophils 0 10^3/ul (0-0.2); ABS Eosinophils 0 10^3/ul (0-0.6); ABS Lymphocytes 1.9 10^3/ul (1.0-4.8); ABS Monocytes 0.5 10^3/ul (0-0.8); ABS Neutrophils 6.8 10^3/ul (1.5-7.7); ABS Nucleated RBC 0 10^3/ul; Eosinophil % 0.4 %; Hematocrit 43 % (36-46); Hemoglobin 14.6 g/dL (14.0-18.0); Lymphocyte % 20.8 %; Mean Corpuscular HGB Conc 34 g/dL (31-36); Mean Corpuscular Hemoglobin 28 pg (27-31); Mean Corpuscular Volume 83 fL (80-94); Mean Platelet Volume 7.4 fL (7.4-10.4); Nucleated Red Blood Cells % 0; Platelet Count 216 10^3/uL (150-450); Red Blood Count 5.19 10^6 /uL (4.18-5.48); Red Cell Distribution Width 14 % (10.5-15); White Blood Count 9.3 10^3/uL (3.5-10.8)
[2018-07-27 12:46] LABS: INR 0.96 (0.77-1.02)
[2018-07-27 12:58] LABS: Albumin 4.2 g/dL (3.2-5.2); Albumin/Globulin Ratio 1.6 (1-3); BUN/Creatinine Ratio 11.2 (8-20); Calcium 9.1 mg/dL (8.6-10.3); EGFR African American 88.5 (>60); EGFR Non-African American 73.2 (>60); Globulin 2.6 g/dL (2-4); Potassium 4.1 mmol/L (3.5-5.0); Total Bilirubin 0.6 mg/dL (0.2-1.0); Total Protein 6.8 g/dL (6.4-8.9)
[2018-07-27 13:00] LABS: Troponin I 0.01 ng/mL (<0.04)
[2018-07-27 14:21] VITALS: BP 147/70
== END 2018-07-27 14:19 | disposition home or self-care (01) ==
LOC: ED 11:12
DX: R06.00 Dyspnea, unspecified (principal); R53.83 Other fatigue; R42 Dizziness and giddiness; I10 Essential (primary) hypertension; Z87.891 Personal history of nicotine dependence
CPT/HCPCS: 36415; 71045; 80053; 83605; 83880; 84484; 85025; 85379; 85610; 93005; 99283; A9270-GY; J3490

== ENCOUNTER 2019-03-16 17:48 | Emergency (ER) | payer BC ==
--- NOTE | 2019-03-16 19:38 | ED ---
Lower Extremity - HPI Summary HPI Summary: 53 year old male presents with right ankle injury today. He states he fell down the stairs. His pain radiating from his ankle up to his driscoll. Denies any previous fracture area. No other injury. No head injury or loss conscious. He is able to ambulate with pain. He states that the pain has been increasing throughout the day. States area is becoming more swollen. - History of Current Complaint Chief Complaint: EDExtremityLower Stated Complaint: ANKLE INJURY PER PT Time Seen by Provider: 03/16/19 18:49 Pain Intensity: 9 - Allergies/Home Medications Allergies/Adverse Reactions: Allergies Allergy/AdvReac Type Severity Reaction Status Date / Time Iodinated Contrast Media Allergy Severe Nausea And Verified 07/27/18 11:48 [Iodinated Contrast- Oral Vomiting and IV Dye] hydromorphone [From Dilaudid] Allergy Altered Verified 07/27/18 11:48 Mental Status ibuprofen Allergy Rash Verified 07/27/18 11:48 ketamine Allergy Anaphylatic Verified 07/27/18 11:48 Shock meperidine [From Demerol] Allergy Altered Verified 07/27/18 11:48 Mental Status adhesives AdvReac Intermediate Rash Uncoded 01/27/17 00:14 PMH/Surg Hx/FS Hx/Imm Hx Endocrine/Hematology History: Denies: Hx Diabetes Cardiovascular History: Reports: Hx Hypertension - has not been taking BP MEDS THAT WERE PRESCRIBED Respiratory History: Reports: Hx Asthma - FLARES UP WITH SEASON CHANGES, Hx Pneumonia, Hx Seasonal Allergies, Hx Sleep Apnea GI History: Reports: Hx Diverticulosis, Hx Ileostomy Denies: Other GI Disorders History: Reports: Hx Kidney Stones - IN THE PAST Denies: Hx Renal Disease Musculoskeletal History: Reports: Hx Arthritis - left hand, Hx Orthopedic Injury - left thumb Denies: Other Musculoskeletal History Sensory History: Denies: Hx Contacts or Glasses, Hx Hearing Aid Opthamlomology History: Denies: Hx Contacts or Glasses Psychiatric History: Reports: Hx Anxiety - TENDS TO BE HYPER & ANXIOUS - Surgical History Surgery Procedure, Year, and Place: Left eye (Raul's Transplant);. Appendectomy. Colostomy. Colostomy Reversal. Hernia Surgery. Left ORIF Knee. Left eye-Cornea surgery[place] [place] Kidney [id number] Hx Anesthesia Reactions: No Infectious Disease History: No Infectious Disease History: Denies: Traveled Outside the [place] in Last 30 Days - Family History Known Family History: Negative: Cardiac Disease, Diabetes - Social History Alcohol Use: Weekly Alcohol Amount: 5 DRINKS A MONTH Hx Substance Use: Yes Substance Use Type: Reports: Marijuana Substance Use Comment - Amount & Last Used: MJ EVERY DAY Hx Tobacco Use: Yes Smoking Status (MU): Former Smoker Amount Used/How Often: 1 PK EVERY 2 DAYS X 20 YRS Review of Systems Negative: Fever Negative: Chest Pain Negative: Shortness Of Breath Positive: Myalgia - right ankle pain All Other Systems Reviewed And Are Negative: Yes Physical Exam Triage Information Reviewed: Yes Vital Signs On Initial Exam: Initial Vitals Temp Pulse Resp BP Pulse Ox 99.0 F 86 14 130/85 98 03/16/19 18:01 03/16/19 18:01 03/16/19 18:01 03/16/19 18:01 03/16/19 18:01 Vital Signs Reviewed: Yes Appearance: Positive: Well-Appearing Skin: Positive: Warm, Dry Head/Face: Positive: Normal Head/Face Inspection Eyes: Positive: Normal, Conjunctiva Clear ENT: Positive: Pharynx normal Respiratory/Lung Sounds: Positive: Clear to Auscultation, Breath Sounds Present Cardiovascular: Positive: Normal, RRR Musculoskeletal: Positive: Limited @ - right ankle, Other - tenderness right ankle lateral and driscoll, good pulses Psychiatric: Positive: Normal Procedures - Sedation Patient Received Moderate/Deep Sedation with Procedure: No Diagnostics - Vital Signs Vital Signs Temp Pulse Resp BP Pulse Ox 03/16/19 18:01 99.0 F 86 14 130/85 98 - Laboratory Lab Statement: Any lab studies that have been ordered have been reviewed, and results considered in the medical decision making process. - Radiology ankle, driscoll Radiology Interpretation Completed By: ED Physician Summary of Radiographic Findings: possible nondisplaced fibula fracture foot Radiology Interpretation Completed By: ED Physician Summary of Radiographic Findings: no fracture Lower Extremity Course/Dx - Course Course Of Treatment: 53 year old male presents with right ankle injury today. He states he fell down the stairs. His pain radiating from his ankle up to his driscoll. Denies any previous fracture area. No other injury. No head injury or loss conscious. He is able to ambulate with pain. He states that the pain has been increasing throughout the day. States area is becoming more swollen. On exam has edema noted to right lower leg. Tenderness over lateral aspect of the right ankle and driscoll. X-ray possible fibula fracture. Gave cam boat and patient declined crutches but will use cane. Told to follow-up with orthopedic which patient has in [place]. Patient understands and agrees with plan. - Diagnoses Differential Diagnosis/HQI/PQRI: Positive: Fracture (Closed), Sprain, Strain Provider Diagnoses: Right ankle injury, Fibula fracture Discharge ED - Sign-Out/Discharge Documenting (check all that apply): Patient Departure - Discharge Plan Condition: Good Disposition: HOME Patient Education Materials: R.I.C.E. Treatment (ED) Forms: *Work Release Referrals: Lyla Thomas MD [Primary Care Provider] - Additional Instructions: Stay off ankle as much as possible Ice, elevate keep boot on area tyenlol every 6 hours for pain Follow up with ortho Return to ED if develop or any new or worsening symptoms - Billing Disposition and Condition Condition: GOOD Disposition: Home - Attestation Statements Provider Attestation: I have seen the patient with the JANAE and agree with the plan and documentation below except as noted: 53 year-old male presents with distal fibula fracture, advised cam boot and nonweightbearing. Kaushal Sal MD
[2019-03-16 20:17] VITALS: BP 142/79
== END 2019-03-16 20:15 | disposition home or self-care (01) ==
LOC: ED 17:48
DX: S82.831A Other fracture of upper and lower end of right fibula, initial encounter for closed fracture (principal); W10.9XXA Fall (on) (from) unspecified stairs and steps, initial encounter; Y92.9 Unspecified place or not applicable; I10 Essential (primary) hypertension; J45.909 Unspecified asthma, uncomplicated; F41.9 Anxiety disorder, unspecified; Z87.891 Personal history of nicotine dependence; Z88.5 Allergy status to narcotic agent; Z88.8 Allergy status to other drugs, medicaments and biological substances; Z88.6 Allergy status to analgesic agent; Z91.041 Radiographic dye allergy status
CPT/HCPCS: 99282